=== PATIENT | female | born 1950 | race Caucasian/White ===

== ENCOUNTER 2017-09-21 14:42 | Outpatient (CLI) | payer OTHER ==
[~2017-09-21 14:42] MED LIST: APIDRA100 U/M1; CAMBIA50 MG; COZAAR25 MG PO; CYMBALTA60 MG PO; HUMULIN 70/30 PE3 ML SQ; LANTUS SOLOSTAR3 ML; PLAVIX75 MG PO; RELAGESIC TABLE1 TAB PO; SYNTHROID75 MCG PO; TRICOR145 MG PO
== END 2017-09-21 16:59 | disposition home or self-care (01) ==
LOC: SONOGRAMA 14:42
DX: S22.32XA Fracture of one rib, left side, initial encounter for closed fracture (principal)

== ENCOUNTER → 2017-09-22 10:53 | Outpatient (CLI) | payer OTHER | END | disposition home or self-care (01) | LOC: LAB 10:53 | DX: R19.7 Diarrhea, unspecified (principal) ==

== ENCOUNTER 2017-10-02 12:27 | Outpatient (CLI) | payer OTHER | END 2017-10-02 12:29 | disposition home or self-care (01) | LOC: LAB 12:27 | DX: E11.65 Type 2 diabetes mellitus with hyperglycemia (principal); I10 Essential (primary) hypertension; E66.09 Other obesity due to excess calories; E78.2 Mixed hyperlipidemia ==

== ENCOUNTER 2017-11-05 14:29 | Outpatient (CLI) | payer OTHER | END 2017-11-05 15:05 | disposition home or self-care (01) | LOC: LAB 14:29 | DX: E11.29 Type 2 diabetes mellitus with other diabetic kidney complication (principal) ==

== ENCOUNTER 2017-11-09 14:21 | Outpatient (CLI) | payer OTHER | END 2017-11-09 14:37 | disposition home or self-care (01) | LOC: MAMO-SONO 14:21 | DX: Z12.31 Encounter for screening mammogram for malignant neoplasm of breast (principal); Z87.898 Personal history of other specified conditions; N60.11 Diffuse cystic mastopathy of right breast; N60.12 Diffuse cystic mastopathy of left breast ==

== ENCOUNTER → 2017-12-07 | Emergency (ER) | payer OTHER ==
[~2017-12-07] VITALS: Ht 167.6 cm; Wt 79.8 kg
== END | disposition home or self-care (01) ==
LOC: ER 13:58 → CPU-OBS 14:00
DX: R07.89 Other chest pain (principal); G44.209 Tension-type headache, unspecified, not intractable; E11.65 Type 2 diabetes mellitus with hyperglycemia

== ENCOUNTER → 2017-12-31 | Emergency (ER) | payer OTHER ==
[~2017-12-31] VITALS: Ht 162.6 cm; Wt 80.3 kg
== END | disposition home or self-care (01) ==
LOC: ER 20:57
DX: E11.65 Type 2 diabetes mellitus with hyperglycemia (principal)

== ENCOUNTER → 2018-12-11 | Emergency (ER) | payer OTHER ==
[~2018-12-11] VITALS: Ht 165.1 cm; Wt 77.1 kg
== END | disposition left against medical advice (07) ==
LOC: ER 16:36
DX: Z53.20 Procedure and treatment not carried out because of patient's decision for unspecified reasons (principal)

== ENCOUNTER 2020-08-09 14:28 | Outpatient (CLI) | payer OTHER | END 2020-08-09 14:34 | disposition home or self-care (01) | LOC: SONOGRAMA 14:28 | PROVIDERS: ATTEND Internal Medicine | DX: R10.84 Generalized abdominal pain (principal) ==

== ENCOUNTER 2021-04-21 07:11 | Outpatient (CLI) | payer OTHER | END 2021-04-21 07:20 | disposition home or self-care (01) | LOC: SONOGRAMA 07:11 | PROVIDERS: ATTEND Internal Medicine | DX: N28.89 Other specified disorders of kidney and ureter (principal); N18.31 Chronic kidney disease, stage 3a ==

== ENCOUNTER 2022-04-20 09:43 | Outpatient (CLI) | payer OTHER | END 2022-04-20 16:00 | disposition home or self-care (01) | LOC: MAMO-SONO 09:43 | PROVIDERS: ATTEND Internal Medicine | DX: N60.11 Diffuse cystic mastopathy of right breast (principal); N60.12 Diffuse cystic mastopathy of left breast; M25.512 Pain in left shoulder; M25.522 Pain in left elbow; M25.552 Pain in left hip; M25.551 Pain in right hip; Z12.31 Encounter for screening mammogram for malignant neoplasm of breast ==

== ENCOUNTER 2023-03-17 13:27 | Emergency (ER) | payer OTHER ==
[~2023-03-17] VITALS: Ht 165.1 cm; Wt 73.9 kg
[~2023-03-17 13:27] MED LIST changes: +APIDRA SOL100 UNIT/1; +CIPRO500 MG PO; +CLONAZEPAM0.5 MG PO; +COZAAR100 MG; +CYMBALTA20 MG; +GABAPENTIN100 M2 PO; +GLIMEPIRIDE4 MG; +GLUMETZA1000 MG; +HUMALOG KW100 UNIT/1 SQ; +LANTUS SOL100 UNIT/1 SQ; +LANTUS100 U/ML; +LIPITOR40 MG; +PLAVIX75 MG; +ROSUVASTATIN CA40 MG PO; +SYNTHROID125 MCG; +SYNTHROID150 MCG PO; +TESSALON PERLE100 MG PO
== END 2023-03-18 00:22 | disposition home or self-care (01) ==
LOC: ER 13:27
DX: N39.0 Urinary tract infection, site not specified (principal); N28.9 Disorder of kidney and ureter, unspecified; K57.32 Diverticulitis of large intestine without perforation or abscess without bleeding; E11.9 Type 2 diabetes mellitus without complications; Z79.84 Long term (current) use of oral hypoglycemic drugs; I10 Essential (primary) hypertension; Z88.8 Allergy status to other drugs, medicaments and biological substances; Z91.013 Allergy to seafood
CPT/HCPCS: 36415; 74176; 93005; 96372; 99284; J1885

== ENCOUNTER 2023-03-26 08:40 | Outpatient (CLI) | payer OTHER | END 2023-03-26 13:06 | disposition home or self-care (01) | LOC: SONOGRAMA 08:40 | PROVIDERS: ATTEND Internal Medicine | DX: K76.0 Fatty (change of) liver, not elsewhere classified (principal); R10.84 Generalized abdominal pain ==

== ENCOUNTER 2023-08-03 12:17 | Emergency (ER) | payer OTHER ==
[~2023-08-03] VITALS: Ht 162.6 cm; Wt 74.8 kg
[2023-08-03 15:07] LABS: HEMATOCRIT 37.3 % (36.0-45.00); HEMOGLOBIN 12.7 g/dL (12.0-15.00); MEAN CELL VOLUME 86.9 fL (80.00-100.00); MEAN CORPUSCULAR HEMOGLOBIN 29.6 pg (27.00-32.0); MEAN CORPUSCULAR HGB CONC 34.1 g/dl (32.0-36.0); PLATELET COUNT 213 K/uL (150-450); RED BLOOD COUNT 4.29 M/uL (4.00-6.00); RED CELL DISTRIBUTION WIDTH 13.4 % (11.5-14.5)
== END 2023-08-03 21:36 | disposition home or self-care (01) ==
LOC: ER 12:17
PROVIDERS: General Practice
DX: L03.119 Cellulitis of unspecified part of limb (principal); L08.9 Local infection of the skin and subcutaneous tissue, unspecified; W54.0XXA Bitten by dog, initial encounter; I10 Essential (primary) hypertension; E11.9 Type 2 diabetes mellitus without complications; Z79.4 Long term (current) use of insulin; Z88.3 Allergy status to other anti-infective agents
CPT/HCPCS: 36415; 96365; 99282; J0456; J1885

== ENCOUNTER 2024-05-04 12:25 | Inpatient (IN) | payer OTHER ==
[~2024-05-04] VITALS: Ht 152.4 cm; Wt 71.7 kg
[2024-05-04] MEDS ORDERED: 0.9 % SODIUM CHLORIDE 1,000 ML IV STA (13:33)
[2024-05-04] MEDS ORDERED: ONDANSETRON HCL 2 MG/ML VIAL ONE ×2 (13:38→18:37)
[2024-05-04] MEDS ORDERED: ONDANSETRON HCL 2 MG/ML VIAL IV ONE (13:45)
[2024-05-04 13:55] LABS: HEMATOCRIT 37.2 % (36.0-45.00); HEMOGLOBIN 12.8 g/dL (12.0-15.00); MEAN CELL VOLUME 86.5 fL (80.00-100.00); MEAN CORPUSCULAR HEMOGLOBIN 29.6 pg (27.00-32.0); MEAN CORPUSCULAR HGB CONC 34.3 g/dl (32.0-36.0); PLATELET COUNT 202 K/uL (150-450); RED CELL DISTRIBUTION WIDTH 13.5 % (11.5-14.5)
[2024-05-04 14:25] LABS: ALKALINE PHOSPHATASE 119 U/L (50-136); ALT/SGPT 14 U/L (12-78); ANION GAP 10 (10.0-20.0); AST/SGOT 17 U/L (15-37); BILIRUBIN TOTAL 0.38 mg/dL (0.3-1.2); BILIRUBIN,CONJUGATED < 0.10 mg/dL (0.0-0.2); BILIRUBIN,UNCONJUGATED 0.28 mg/dL (0.0-0.6); BLOOD UREA NITROGEN 28 mg/dL (7-18); BUN CREA RATIO 9 (7.0-25.0); CALCIUM 9.3 mg/dL (8.5-10.1); CARBON DIOXIDE 27 mEq/L (21-32); CHLORIDE 110 mmol/L (98-107); CREATININE SERUM 3.21 mg/dL (0.55-1.02); GFR 14.23; OSMOLALITY SERUM 294 MOSM/KG (275-295); POTASSIUM 4.63 mEq/L (3.5-5.1); SODIUM 142 mmol/L (136-145); TOTAL PROTEIN 7.6 gm/dL (6.4-8.2)
[2024-05-04 14:28] LABS: GLUCOSE FASTING 201 mg/dL (65-100)
[2024-05-04 16:32] LABS: URINE APPEARANCE Turbid; URINE BILIRRUBIN Negative (NEGATIVE); URINE BLOOD Small; URINE COLOR Yellow; URINE KETONE Negative (NEGATIVE); URINE LEUKOCYTE Trace; URINE NITRATE Negative; URINE UROBILINOGEN 0.2 E.U./dl
[2024-05-04 16:35] LABS: URINE RBC 7.6 uL (0.0-20.8); URINE WBC 989.6 uL (0.0-23.2)
[2024-05-04 16:37] LABS: URINE BACTERIA > 9821.2 uL (0.0-1933); URINE CAST 0.91 uL (0.0-1.40); URINE GLUCOSE >=1000 MG/DL (NEGATIVE); URINE PROTEIN 300 (NEGATIVE)
[2024-05-04] MEDS ORDERED: CIPROFLOXACIN IN 5 % DEXTROSE 400 MG/200 ML PIGGYBAG IV ONE ×2 (17:30→17:41)
[2024-05-04] MEDS ORDERED: ACETAMINOPHEN 325 MG TABLET PO PRN (19:30)
[2024-05-04] MEDS ORDERED: FAMOTIDINE/PF 20 MG in 0.9 % SODIUM CHLORIDE 100 ML IV SCH (19:43)
[2024-05-04] MEDS ORDERED: 0.9 % SODIUM CHLORIDE 1,000 ML IV SCH (19:45)
[2024-05-04] MEDS ORDERED: INSULIN LISPRO 1,000 UNIT/10 ML UNITS SUBCUTANEO PRN (19:45)
[2024-05-04] MEDS ORDERED: DEXTROSE 50 % IN WATER 0.5 G/ML DISP.SYRIN IV PRN (19:45)
[2024-05-04 19:55] VITALS: BP 130/62
[2024-05-04] MEDS ORDERED: FAMOTIDINE/PF 20 MG/2 ML VIAL ONE (19:55)
[2024-05-04] MEDS ORDERED: AMLODIPINE BESYLATE 10 MG TABLET PO SCH (20:17)
[2024-05-04] MEDS ORDERED: hydrALAZINE HCL 20 MG VIAL IV PRN (20:30)
[2024-05-04] MEDS ORDERED: ONDANSETRON HCL 4 MG in 0.9 % SODIUM CHLORIDE 50 ML IV PRN (20:45)
[2024-05-04 20:59] LABS: INR 1.02; PARTIAL THROMBOPLASTIN TIME 22.2 SECONDS (22.0-34.0); PROTHROMBIN TIME 11.1 SECONDS (9.0-11.5)
[2024-05-04] MEDS ORDERED: CIPROFLOXACIN IN 5 % DEXTROSE 200 ML IV SCH (21:00)
[2024-05-04 21:01] LABS: ALBUMIN 2.9 gm/dL (3.4-5.0); CALCIUM 8.9 mg/dL (8.5-10.1); CREATININE SERUM 3.08 mg/dL (0.55-1.02); GFR 14.92; PHOSPHOROUS 3.6 mg/dL (2.5-4.9); POTASSIUM 4.58 mEq/L (3.5-5.1)
[2024-05-04 21:04] LABS: ALBUMIN 2.9 gm/dL (3.4-5.0)
[2024-05-04 21:30] VITALS: BP 200/86; O2SAT 97
[2024-05-05 03:44] VITALS: BP 150/66
[2024-05-05] MEDS ORDERED: LEVOTHYROXINE SODIUM 75 MCG TABLET PO SCH (06:00)
[2024-05-05] MEDS ORDERED: ACETAMINOPHEN 500 MG GEL..CAP PO PRN (07:15)
[2024-05-05 09:00] VITALS: BP 232/86
[2024-05-05] MEDS ORDERED: FAMOTIDINE/PF 20 MG in 0.9 % SODIUM CHLORIDE 100 ML IV SCH (09:00)
[2024-05-05 10:12] LABS: ALBUMIN 2.6 gm/dL (3.4-5.0); BILIRUBIN TOTAL 0.35 mg/dL (0.3-1.2); CALCIUM 8.6 mg/dL (8.5-10.1); CREATININE SERUM 3.17 mg/dL (0.55-1.02); GFR 14.43; GLOBULINA 3.5 G/DL (2.4-3.5); POTASSIUM 4.29 mEq/L (3.5-5.1); TOTAL PROTEIN 6.1 gm/dL (6.4-8.2)
[2024-05-05 21:07] VITALS: BP 150/90
[2024-05-06 02:20] VITALS: BP 176/68
[2024-05-06] MEDS ORDERED: PROMETHAZINE HCL 25 MG/ML AMPUL IM PRN (02:30)
[2024-05-06 06:59] LABS: HEMOGLOBIN 11.5 g/dL (12.0-15.00); MEAN CELL VOLUME 85.3 fL (80.00-100.00); MEAN CORPUSCULAR HEMOGLOBIN 29.7 pg (27.00-32.0); MEAN CORPUSCULAR HGB CONC 34.8 g/dl (32.0-36.0); PLATELET COUNT 226 K/uL (150-450); RED BLOOD COUNT 3.87 M/uL (4.00-6.00); RED CELL DISTRIBUTION WIDTH 13.9 % (11.5-14.5)
[2024-05-06 08:31] VITALS: BP 215/81; O2SAT 97
[2024-05-06 08:53] VITALS: BP 190/80
[2024-05-06] MEDS ORDERED: CIPROFLOXACIN IN 5 % DEXTROSE 200 ML IV SCH (09:00)
[2024-05-06 09:49] LABS: ALBUMIN 2.6 gm/dL (3.4-5.0); CALCIUM 8.7 mg/dL (8.5-10.1); CREATININE SERUM 3.28 mg/dL (0.55-1.02); GFR 13.88; PHOSPHOROUS 3.6 mg/dL (2.5-4.9); POTASSIUM 4.28 mEq/L (3.5-5.1)
[2024-05-06] MEDS ORDERED: MAGNESIUM HYDROXIDE 30 ML BLIST.PACK PO NR (14:00)
[2024-05-06] MEDS ORDERED: MINERAL OIL 30 ML BLIST.PACK PO NR (14:00)
[2024-05-06] MEDS ORDERED: LACTULOSE 20 G/30 ML BLIST.PACK PO NR (14:00)
[2024-05-06 16:36] VITALS: BP 180/90; O2SAT 100
[2024-05-07 00:50] VITALS: BP 197/86; O2SAT 96
[2024-05-07] MEDS ORDERED: ONDANSETRON HCL 2 MG/ML VIAL ONE (09:13)
[2024-05-07 09:15] VITALS: BP 143/71; O2SAT 97
[2024-05-07 14:10] LABS: URINE APPEARANCE Clear; URINE BILIRRUBIN Negative (NEGATIVE); URINE BLOOD Negative; URINE CAST 5.19 uL (0.0-1.40); URINE COLOR Yellow; URINE KETONE Trace (NEGATIVE); URINE LEUKOCYTE Small; URINE NITRATE Negative; URINE RBC 49.3 uL (0.0-20.8); URINE UROBILINOGEN 0.2 E.U./dl; URINE WBC 737.1 uL (0.0-23.2)
[2024-05-07 14:26] LABS: URINE GLUCOSE >=1000 MG/DL (NEGATIVE)
[2024-05-07 14:27] LABS: URINE PROTEIN 300 (NEGATIVE)
[2024-05-07 14:28] LABS: URINE YEAST NEGATIVE /hpf
[2024-05-07 16:00] VITALS: BP 180/60; O2SAT 98
[2024-05-08 02:00] VITALS: BP 163/78; O2SAT 97
[2024-05-08 09:26] VITALS: BP 190/88; O2SAT 97
[2024-05-08] MEDS ORDERED: IRBESARTAN 150 MG TABLET PO SCH (17:00)
[2024-05-08] MEDS ORDERED: SODIUM CHLORIDE 0.45 % 1,000 ML IV SCH (17:30)
[2024-05-08] MEDS ORDERED: LACTOBACILLUS ACIDOPHILUS 1 CAP CAP PO SCH (17:57)
[2024-05-08 19:22] VITALS: BP 180/110; O2SAT 98
[2024-05-09 02:24] VITALS: BP 143/67; O2SAT 96
[2024-05-09 06:49] LABS: HEMATOCRIT 31.9 % (36.0-45.00); HEMOGLOBIN 11.1 g/dL (12.0-15.00); MEAN CELL VOLUME 86.3 fL (80.00-100.00); MEAN CORPUSCULAR HEMOGLOBIN 29.9 pg (27.00-32.0); MEAN CORPUSCULAR HGB CONC 34.6 g/dl (32.0-36.0); PLATELET COUNT 203 K/uL (150-450); RED CELL DISTRIBUTION WIDTH 14.1 % (11.5-14.5)
[2024-05-09 07:07] LABS: ALBUMIN 2.5 gm/dL (3.4-5.0); CALCIUM 8.3 mg/dL (8.5-10.1); CREATININE SERUM 2.99 mg/dL (0.55-1.02); GFR 15.44; PHOSPHOROUS 3.2 mg/dL (2.5-4.9); POTASSIUM 4.47 mEq/L (3.5-5.1)
[2024-05-09 07:08] LABS: TSH 3.19 uIU/mL (0.358-3.74)
[2024-05-09 08:53] VITALS: BP 221/80; O2SAT 96
[2024-05-09 10:15] LABS: URINE PROT QUANT 24HR 438.2 MG/DL
[2024-05-09 10:52] LABS: URINE PROT QUANT 24 HR 3943.8 MG/24HR (42-225)
[2024-05-09 10:56] LABS: CREATININE SERUM 2.99 mg/dL (0.6-1.0)
[2024-05-09] MEDS ORDERED: IRBESARTAN 150 MG TABLET PO STA (11:21)
[2024-05-09] MEDS ORDERED: hydrALAZINE HCL 50 MG TABLET PO SCH (17:00)
[2024-05-09] MEDS ORDERED: MECLIZINE HCL 25 MG TABLET PO SCH (17:00)
[2024-05-09 17:41] VITALS: BP 200/80; O2SAT 96
[2024-05-09] MEDS ORDERED: TOBRAMYCIN/DEXAMETHASONE 20 DR/ML DROPS OP SCH (18:00)
[2024-05-10 01:52] VITALS: BP 146/94; O2SAT 97
[2024-05-10 09:29] VITALS: BP 200/90; O2SAT 97
[2024-05-10] MEDS ORDERED: NIFEDIPINE 60 MG TAB.SA.OSM PO SCH (17:00)
[2024-05-10 17:47] VITALS: BP 200/100; O2SAT 98
[2024-05-10 22:12] VITALS: BP 156/66; O2SAT 98
[2024-05-11 01:12] VITALS: BP 139/66; O2SAT 98
[2024-05-11 07:49] LABS: HEMATOCRIT 29.8 % (36.0-45.00); HEMOGLOBIN 10.4 g/dL (12.0-15.00); MEAN CELL VOLUME 86.3 fL (80.00-100.00); MEAN CORPUSCULAR HEMOGLOBIN 30.1 pg (27.00-32.0); MEAN CORPUSCULAR HGB CONC 34.9 g/dl (32.0-36.0); PLATELET COUNT 216 K/uL (150-450); RED BLOOD COUNT 3.45 M/uL (4.00-6.00); RED CELL DISTRIBUTION WIDTH 13.6 % (11.5-14.5)
[2024-05-11 08:47] LABS: ALBUMIN 2.5 gm/dL (3.4-5.0); BILIRUBIN TOTAL 0.34 mg/dL (0.3-1.2); CALCIUM 8.3 mg/dL (8.5-10.1); CREATININE SERUM 3.04 mg/dL (0.55-1.02); GFR 15.15; GLOBULINA 3.3 G/DL (2.4-3.5); MAGNESIUM 1.9 mg/dL (1.8-2.4); PHOSPHOROUS 3.7 mg/dL (2.5-4.9); POTASSIUM 4.35 mEq/L (3.5-5.1); TOTAL PROTEIN 5.8 gm/dL (6.4-8.2)
[2024-05-11 09:20] VITALS: BP 180/70; O2SAT 97
[2024-05-11 15:25] LABS: URINE APPEARANCE Clear; URINE BILIRRUBIN Negative (NEGATIVE); URINE BLOOD Negative; URINE COLOR Yellow; URINE KETONE Negative (NEGATIVE); URINE LEUKOCYTE Trace; URINE NITRATE Negative; URINE UROBILINOGEN 0.2 E.U./dl
[2024-05-11 15:31] LABS: URINE BACTERIA 8127.6 uL (0.0-1933); URINE CAST 7.93 uL (0.0-1.40); URINE WBC 199.4 uL (0.0-23.2)
[2024-05-11 15:45] LABS: URINE GLUCOSE 500 MG/DL (NEGATIVE); URINE PROTEIN 100 (NEGATIVE); URINE RBC 1.8 uL (0.0-20.8)
[2024-05-11] MEDS ORDERED: hydrALAZINE HCL 50 MG TABLET PO SCH (17:00)
[2024-05-11] MEDS ORDERED: METOPROLOL SUCCINATE 25 MG TAB.SR.24H PO SCH (17:00)
[2024-05-11] MEDS ORDERED: hydrALAZINE HCL 25 MG,hydrALAZINE HCL 50 MG PO SCH (17:00)
[2024-05-11 17:26] VITALS: BP 199/70; O2SAT 96
[2024-05-11] MEDS ORDERED: NITROGLYCERIN IN 5 % DEXTROSE 250 ML IV SCH (19:15)
[2024-05-11] MEDS ORDERED: ATORVASTATIN CALCIUM 40 MG TABLET PO SCH (20:46)
[2024-05-11] MEDS ORDERED: ASPIRIN 325 MG TABLET.EC PO STA (20:46)
[2024-05-11 21:48] VITALS: BP 106/66; O2SAT 100
[2024-05-12] MEDS ORDERED: hydrALAZINE HCL 25 MG TABLET PO SCH (01:00)
[2024-05-12 01:22] VITALS: BP 130/60; O2SAT 99
[2024-05-12 06:51] LABS: CHOL HDL RATIO 3.9 (0-5.0)
[2024-05-12 06:56] LABS: CKMB 3.9 NG/ML (0.5-3.6)
[2024-05-12] MEDS ORDERED: NITROGLYCERIN IN 5 % DEXTROSE 250 ML IV SCH (07:30)
[2024-05-12 09:08] VITALS: BP 167/57; O2SAT 98
[2024-05-12] MEDS ORDERED: CLOPIDOGREL BISULFATE 75 MG TABLET PO SCH (09:17)
[2024-05-12] MEDS ORDERED: ASPIRIN 325 MG TABLET.EC PO SCH (09:17)
[2024-05-12] MEDS ORDERED: AMLODIPINE BESYLATE 5 MG TABLET PO SCH (09:36)
[2024-05-12] MEDS ORDERED: DOXAZOSIN MESYLATE 4 MG TABLET PO SCH (09:37)
[2024-05-12] MEDS ORDERED: ENOXAPARIN SODIUM 40 MG/0.4 ML SYRINGE SUBCUTANEO SCH (09:38)
[2024-05-12] MEDS ORDERED: hydrALAZINE HCL 50 MG TABLET PO SCH (13:00)
[2024-05-12] MEDS ORDERED: METOPROLOL SUCCINATE 50 MG TAB.SR.24H PO SCH (17:00)
[2024-05-12 18:00] VITALS: BP 196/79
[2024-05-13 01:59] VITALS: BP 183/80; O2SAT 100
[2024-05-13 02:11] LABS: CKMB 4.2 NG/ML (0.5-3.6)
[2024-05-13 05:08] VITALS: BP 148/79
[2024-05-13 08:00] VITALS: BP 187/82; O2SAT 94
[2024-05-13] MEDS ORDERED: ISOSORBIDE MONONITRATE 30 MG TABLET PO SCH (09:00)
[2024-05-13] MEDS ORDERED: DOXAZOSIN MESYLATE 4 MG TABLET PO SCH (09:00)
[2024-05-13] MEDS ORDERED: NIFEDIPINE 90 MG TAB.SA.OSM PO SCH (09:00)
[2024-05-13] MEDS ORDERED: METOPROLOL SUCCINATE 100 MG TAB.SR.24H PO SCH (17:00)
[2024-05-13 17:19] VITALS: BP 132/63
[2024-05-13 17:39] VITALS: BP 137/56
[2024-05-13] MEDS ORDERED: LEVALBUTEROL HCL 0.63 MG/3 ML SOLUTION IH SCH (20:20)
[2024-05-13] MEDS ORDERED: IPRATROPIUM BROMIDE 0.5 MG/2.5 ML AMPUL.NEB IH SCH (20:20)
[2024-05-14 02:26] VITALS: BP 120/55
[2024-05-14 08:26] VITALS: BP 114/55; O2SAT 98
[2024-05-14] MEDS ORDERED: CEFTRIAXONE SODIUM 1,000 MG VIAL IV SCH (09:00)
[2024-05-14] MEDS ORDERED: BUMETANIDE 0.5 MG TABLET PO SCH (10:34)
[2024-05-14 12:09] LABS: BB 0 % (0); MM 86 % (97-100); c mb 0 % (0-3); macro t 14 % (Not Observed); macro tyoe 2 0 % (Not Observed); total ck 229 U/L (32-182)
[2024-05-14 14:49] VITALS: BP 126/58; O2SAT 100
[2024-05-14 18:12] VITALS: BP 107/53
[2024-05-14] MEDS ORDERED: NITROGLYCERIN 0.4 MG TAB.SUBL SL ONE (18:15)
[2024-05-14] MEDS ORDERED: AZTREONAM 1,000 MG VIAL IV SCH (21:00)
[2024-05-14] MEDS ORDERED: ALPRAzolam 1 MG TABLET PO SCH (21:00)
[2024-05-15 01:41] VITALS: BP 118/69; O2SAT 99
[2024-05-15 08:18] LABS: URINE BILIRRUBIN Negative (NEGATIVE); URINE BLOOD Negative; URINE COLOR Yellow; URINE KETONE Trace (NEGATIVE); URINE LEUKOCYTE Moderate; URINE NITRATE Negative; URINE UROBILINOGEN 0.2 E.U./dl
[2024-05-15 08:20] LABS: URINE BACTERIA 723.2 uL (0.0-1933); URINE CAST 15.57 uL (0.0-1.40); URINE RBC 198.4 uL (0.0-20.8); URINE WBC 409.2 uL (0.0-23.2)
[2024-05-15] MEDS ORDERED: MORPHINE SULFATE 2 MG/ML CARTRIDGE IV PRN (08:45)
[2024-05-15] MEDS ORDERED: ALPRAzolam 1 MG TABLET PO SCH (09:00)
[2024-05-15 09:04] LABS: URINE GLUCOSE 100 MG/DL (NEGATIVE); URINE PROTEIN 300 (NEGATIVE)
[2024-05-15 09:05] LABS: URINE APPEARANCE CLEAR
[2024-05-15 09:06] LABS: URINE CRYSTALS FEW /HPF
[2024-05-15 09:23] VITALS: BP 146/54; O2SAT 98
[2024-05-15 11:15] LABS: HEMATOCRIT 23.2 % (36.0-45.00); MEAN CELL VOLUME 87.5 fL (80.00-100.00); MEAN CORPUSCULAR HEMOGLOBIN 30.1 pg (27.00-32.0); MEAN CORPUSCULAR HGB CONC 34.7 g/dl (32.0-36.0); PLATELET COUNT 159 K/uL (150-450); RED BLOOD COUNT 2.65 M/uL (4.00-6.00); RED CELL DISTRIBUTION WIDTH 14.1 % (11.5-14.5)
[2024-05-15 12:31] LABS: ALBUMIN 2.4 gm/dL (3.4-5.0); BILIRUBIN TOTAL 0.16 mg/dL (0.3-1.2); GFR 10.32; GLOBULINA 3.2 G/DL (2.4-3.5); MAGNESIUM 2.1 mg/dL (1.8-2.4); POTASSIUM 4.9 mEq/L (3.5-5.1); TOTAL PROTEIN 5.6 gm/dL (6.4-8.2)
[2024-05-15 13:01] LABS: CREATININE SERUM 4.24 mg/dL (0.55-1.02)
[2024-05-15 13:46] VITALS: BP 133/57
[2024-05-15 16:41] VITALS: BP 115/47
[2024-05-15] MEDS ORDERED: ZOLPIDEM TARTRATE 10 MG TABLET PO SCH (21:00)
[2024-05-16] VITALS (9 sets, daily range): BP systolic 70–123; BP diastolic 42–66; O2SAT 96–100
[2024-05-16] MEDS ORDERED: EPOETIN ALFA-EPBX 10,000 UNIT/ML VIAL (Retacrit) SUBCUTANEO SCH (09:00)
[2024-05-16] MEDS ORDERED: PANTOPRAZOLE SODIUM 80 MG in 0.9 % SODIUM CHLORIDE 100 ML IV SCH (13:00)
[2024-05-16] MEDS ORDERED: FUROsemide 40 MG/4 ML VIAL IV SCH (13:00)
[2024-05-16 15:17] LABS: MEAN CELL VOLUME 87.8 fL (80.00-100.00); MEAN CORPUSCULAR HGB CONC 33.6 g/dl (32.0-36.0); PLATELET COUNT 135 K/uL (150-450); RED BLOOD COUNT 2.57 M/uL (4.00-6.00); RED CELL DISTRIBUTION WIDTH 14.4 % (11.5-14.5)
[2024-05-16 15:18] LABS: HEMATOCRIT 22.6 % (36.0-45.00); MEAN CORPUSCULAR HEMOGLOBIN 29.5 pg (27.00-32.0)
[2024-05-16 15:20] LABS: HEMOGLOBIN 7.6 g/dL (12.0-15.00)
[2024-05-16] MEDS ORDERED: NOREPINEPHRINE BITARTRATE 8 MG in DEXTROSE 5 % IN WATER 250 ML IV SCH (15:45)
[2024-05-16] MEDS ORDERED: 0.9 % SODIUM CHLORIDE 500 ML IV ONE (15:45)
[2024-05-16] MEDS ORDERED: MEROPENEM 500 MG/VIAL VIAL IV SCH (17:00)
[2024-05-16] MEDS ORDERED: FLUCONAZOLE IN NACL,ISO-OSM 100 MG/50 ML PIGGYBAG IV SCH (17:00)
[2024-05-16] MEDS ORDERED: FF) Daptomycin 500 MG/VIAL IV SCH (17:00)
[2024-05-16 22:47] LABS: URINE APPEARANCE Turbid; URINE BILIRRUBIN Negative (NEGATIVE); URINE BLOOD Large; URINE COLOR Yellow; URINE GLUCOSE Negative (NEGATIVE); URINE KETONE Trace (NEGATIVE); URINE LEUKOCYTE Moderate; URINE NITRATE Negative; URINE UROBILINOGEN 0.2 E.U./dl
[2024-05-16 22:50] LABS: URINE BACTERIA 662.7 uL (0.0-1933); URINE CAST 5.64 uL (0.0-1.40); URINE EPITHELIAL CELLS 54.5 uL (0.0-38.8); URINE RBC 3087.4 uL (0.0-20.8); URINE WBC 184.6 uL (0.0-23.2)
[2024-05-16 23:00] LABS: URINE PROTEIN 300 (NEGATIVE)
[2024-05-17] VITALS (22 sets, daily range): BP systolic 92–162; BP diastolic 37–90; O2SAT 97–100
[2024-05-17 07:35] LABS: MEAN CELL VOLUME 87.4 fL (80.00-100.00); MEAN CORPUSCULAR HGB CONC 34.2 g/dl (32.0-36.0); PLATELET COUNT 164 K/uL (150-450); RED BLOOD COUNT 2.63 M/uL (4.00-6.00); RED CELL DISTRIBUTION WIDTH 14.3 % (11.5-14.5)
[2024-05-17 07:53] LABS: ALBUMIN 2.1 gm/dL (3.4-5.0); BILIRUBIN TOTAL 0.27 mg/dL (0.3-1.2); CALCIUM 7.9 mg/dL (8.5-10.1); GFR 9.1; GLOBULINA 3.1 G/DL (2.4-3.5); POTASSIUM 5.77 mEq/L (3.5-5.1); TOTAL PROTEIN 5.2 gm/dL (6.4-8.2)
[2024-05-17 08:54] LABS: CREATININE SERUM 4.73 mg/dL (0.55-1.02)
[2024-05-17] MEDS ORDERED: AZTREONAM 1,000 MG VIAL IV SCH (09:00)
[2024-05-17 10:28] LABS: HEMOGLOBIN 7.9 g/dL (12.0-15.00)
[2024-05-17] MEDS ORDERED: ALBUMIN HUMAN-25 0.25GM/ML (50ML) VIAL IV ONE (10:45)
[2024-05-17] MEDS ORDERED: SODIUM POLYSTYRENE SULFONATE 30G/8 TSP PO SCH (12:00)
[2024-05-17] MEDS ORDERED: SODIUM BICARBONATE 50MEQ/50ML VIAL IV NR (15:30)
[2024-05-17] MEDS ORDERED: RINGERS SOLUTION,LACTATED 1,000 ML IV SCH (15:30)
[2024-05-17] MEDS ORDERED: MORPHINE SULFATE 2 MG/ML CARTRIDGE IV PRN (16:15)
[2024-05-17] MEDS ORDERED: FLUCONAZOLE IN NACL,ISO-OSM 2 MG/ML ML IV SCH (17:00)
[2024-05-17 17:32] LABS: INR 1.03; PARTIAL THROMBOPLASTIN TIME 35.4 SECONDS (22.0-34.0); PROTHROMBIN TIME 11.2 SECONDS (9.0-11.5)
[2024-05-18] VITALS (19 sets, daily range): BP systolic 79–151; BP diastolic 39–89; O2SAT 98–100
[2024-05-18 20:13] LABS: HEMATOCRIT 25.6 % (36.0-45.00); HEMOGLOBIN 8.8 g/dL (12.0-15.00); MEAN CORPUSCULAR HEMOGLOBIN 29.6 pg (27.00-32.0); MEAN CORPUSCULAR HGB CONC 34.3 g/dl (32.0-36.0); RED BLOOD COUNT 2.97 M/uL (4.00-6.00)
[2024-05-18 20:14] LABS: PLATELET COUNT 126 K/uL (150-450)
[2024-05-19] VITALS (7 sets, daily range): BP systolic 124–147; BP diastolic 54–81; O2SAT 96–100
[2024-05-19 08:12] LABS: HEMATOCRIT 24.8 % (36.0-45.00); MEAN CELL VOLUME 85.6 fL (80.00-100.00); MEAN CORPUSCULAR HGB CONC 34.4 g/dl (32.0-36.0); RED CELL DISTRIBUTION WIDTH 14.5 % (11.5-14.5)
[2024-05-19 08:18] LABS: MEAN CORPUSCULAR HEMOGLOBIN 29.3 pg (27.00-32.0)
[2024-05-19 08:19] LABS: HEMOGLOBIN 8.5 g/dL (12.0-15.00); PLATELET COUNT 111 K/uL (150-450)
[2024-05-19 08:28] LABS: ALBUMIN 2.1 gm/dL (3.4-5.0); BILIRUBIN TOTAL 0.33 mg/dL (0.3-1.2); CREATININE SERUM 3.21 mg/dL (0.55-1.02); GFR 14.23; GLOBULINA 2.7 G/DL (2.4-3.5); POTASSIUM 3.67 mEq/L (3.5-5.1); TOTAL PROTEIN 4.8 gm/dL (6.4-8.2)
[2024-05-19 11:23] LABS: PLATELET COUNT 117 K/uL (150-450)
[2024-05-19 11:25] LABS: PLT IN CITRATE 107 K/uL (150-450)
[2024-05-19 13:02] LABS: ABG PH 7.413 (7.35-7.45); ABG PO2 104.9 mmHg (80-100); ABG pCO2 34.4 mmHg (35-45); BASE EXCESS -2.3 mmol/l; BICARBONATE 21.5 mmol/l (23-25); Tco2 22.5 mmol/l
[2024-05-19 15:53] LABS: allen test SATISFACTORY; o2 32 %; puncture site RADIAL RIGHT
[2024-05-20 01:27] LABS: HEMATOCRIT 33.5 % (36.0-45.00); HEMOGLOBIN 11.3 g/dL (12.0-15.00); MEAN CELL VOLUME 87.2 fL (80.00-100.00); MEAN CORPUSCULAR HEMOGLOBIN 29.5 pg (27.00-32.0); MEAN CORPUSCULAR HGB CONC 33.8 g/dl (32.0-36.0); RED BLOOD COUNT 3.85 M/uL (4.00-6.00); RED CELL DISTRIBUTION WIDTH 14.5 % (11.5-14.5)
[2024-05-20 01:28] LABS: PLATELET COUNT 128 K/uL (150-450)
[2024-05-20 04:00] VITALS: BP 156/62; O2SAT 98
[2024-05-20 07:25] VITALS: BP 166/88; O2SAT 98
[2024-05-20 12:00] VITALS: BP 162/60; O2SAT 98
[2024-05-20 15:15] VITALS: BP 142/57; O2SAT 97
[2024-05-20] MEDS ORDERED: ENOXAPARIN SODIUM 30 MG/0.3 ML SYRINGE SUBCUTANEO SCH (17:00)
[2024-05-20 20:00] VITALS: BP 150/62; O2SAT 100
[2024-05-21] VITALS: BP 126/61; O2SAT 100
[2024-05-21 04:00] VITALS: BP 148/58; O2SAT 99
[2024-05-21 07:01] LABS: HEMATOCRIT 30.5 % (36.0-45.00); HEMOGLOBIN 10.6 g/dL (12.0-15.00); MEAN CELL VOLUME 87.2 fL (80.00-100.00); MEAN CORPUSCULAR HEMOGLOBIN 30.3 pg (27.00-32.0); MEAN CORPUSCULAR HGB CONC 34.8 g/dl (32.0-36.0); PLATELET COUNT 151 K/uL (150-450); RED CELL DISTRIBUTION WIDTH 14.7 % (11.5-14.5)
[2024-05-21 07:13] LABS: ALBUMIN 1.9 gm/dL (3.4-5.0); BILIRUBIN TOTAL 0.56 mg/dL (0.3-1.2); CREATININE SERUM 2.3 mg/dL (0.55-1.02); GFR 20.9; GLOBULINA 2.8 G/DL (2.4-3.5); MAGNESIUM 1.8 mg/dL (1.8-2.4); TOTAL PROTEIN 4.7 gm/dL (6.4-8.2)
[2024-05-21 07:28] VITALS: BP 124/64; O2SAT 98
[2024-05-21 07:32] LABS: POTASSIUM 2.74 mEq/L (3.5-5.1)
[2024-05-21] MEDS ORDERED: DEXTROSE 5%-LACTATED RINGERS 1,000 ML IV SCH (08:00)
[2024-05-21] MEDS ORDERED: POTASSIUM CHLORIDE IN WATER 40 MEQ/100 ML PIGGYBAG IV SCH (09:00)
[2024-05-21] MEDS ORDERED: POLYETHYLENE GLYCOL 3350 17 GM BLIST.PACK PO SCH (09:00)
[2024-05-21 14:36] VITALS: BP 126/53; O2SAT 100
[2024-05-21 15:28] VITALS: BP 138/59; O2SAT 100
[2024-05-21 21:00] VITALS: BP 107/48; O2SAT 100
[2024-05-22] VITALS (13 sets, daily range): BP systolic 75–177; BP diastolic 48–79; O2SAT 98–100
[2024-05-22 07:00] LABS: HEMATOCRIT 29.5 % (36.0-45.00); HEMOGLOBIN 10.3 g/dL (12.0-15.00); MEAN CELL VOLUME 87.6 fL (80.00-100.00); MEAN CORPUSCULAR HEMOGLOBIN 30.6 pg (27.00-32.0); MEAN CORPUSCULAR HGB CONC 34.9 g/dl (32.0-36.0); PLATELET COUNT 156 K/uL (150-450); RED BLOOD COUNT 3.37 M/uL (4.00-6.00); RED CELL DISTRIBUTION WIDTH 14.6 % (11.5-14.5)
[2024-05-22 07:05] LABS: ALBUMIN 1.8 gm/dL (3.4-5.0); BILIRUBIN TOTAL 0.53 mg/dL (0.3-1.2); CALCIUM 7.8 mg/dL (8.5-10.1); CREATININE SERUM 1.69 mg/dL (0.55-1.02); GFR 29.83; GLOBULINA 2.9 G/DL (2.4-3.5); TOTAL PROTEIN 4.7 gm/dL (6.4-8.2)
[2024-05-22 07:36] LABS: POTASSIUM 2.9 mEq/L (3.5-5.1)
[2024-05-22] MEDS ORDERED: POTASSIUM CHLORIDE IN WATER 100 ML IV ONE (08:45)
[2024-05-22] MEDS ORDERED: POTASSIUM CHLORIDE/D5-0.9%NACL 1,000 ML IV ONE (08:45)
[2024-05-22] MEDS ORDERED: PANTOPRAZOLE SODIUM 40 MG TABLET.DR PO SCH (09:00)
[2024-05-22] MEDS ORDERED: POTASSIUM CHLORIDE IN WATER 100 ML IV SCH ×2 (09:00→09:48)
[2024-05-22] MEDS ORDERED: ALBUMIN HUMAN-25 0.25GM/ML (50ML) VIAL IV SCH (13:00)
[2024-05-22] MEDS ORDERED: FUROsemide 20 MG/2 ML VIAL IV SCH (13:00)
[2024-05-22 17:06] LABS: Glycopro Negative (Negative); HL Negative (Negative); la Negative (Negative); lb Negative (Negative); llb Negative (Negative)
[2024-05-22 23:47] LABS: ob POSITIVE (NEGATIVE)
[2024-05-23 04:00] VITALS: BP 161/73; O2SAT 99
[2024-05-23 06:21] LABS: HEMATOCRIT 29.7 % (36.0-45.00); HEMOGLOBIN 10.4 g/dL (12.0-15.00); MEAN CELL VOLUME 85.9 fL (80.00-100.00); MEAN CORPUSCULAR HGB CONC 34.9 g/dl (32.0-36.0); PLATELET COUNT 170 K/uL (150-450); RED BLOOD COUNT 3.46 M/uL (4.00-6.00); RED CELL DISTRIBUTION WIDTH 14.9 % (11.5-14.5)
[2024-05-23 07:00] LABS: ALBUMIN 2.3 gm/dL (3.4-5.0); BILIRUBIN TOTAL 0.86 mg/dL (0.3-1.2); CALCIUM 8.4 mg/dL (8.5-10.1); CREATININE SERUM 1.99 mg/dL (0.55-1.02); GFR 24.7; GLOBULINA 2.8 G/DL (2.4-3.5); MAGNESIUM 1.8 mg/dL (1.8-2.4); POTASSIUM 3.36 mEq/L (3.5-5.1); TOTAL PROTEIN 5.1 gm/dL (6.4-8.2)
[2024-05-23] MEDS ORDERED: POTASSIUM CHLORIDE IN WATER 100 ML IV NR (09:00)
[2024-05-23 10:09] VITALS: BP 167/71; O2SAT 98
[2024-05-23 12:00] VITALS: BP 174/89; O2SAT 100
[2024-05-23] MEDS ORDERED: ALBUMIN HUMAN-25 0.25GM/ML (50ML) VIAL IV SCH (13:00)
[2024-05-23] MEDS ORDERED: FUROsemide 20 MG/2 ML VIAL IV SCH (13:00)
[2024-05-23] MEDS ORDERED: MORPHINE SULFATE 2 MG/ML CARTRIDGE IV NR (16:30)
[2024-05-23 16:38] VITALS: BP 206/64; O2SAT 97
[2024-05-23 17:58] VITALS: O2SAT 96
[2024-05-23 21:50] VITALS: BP 134/57; O2SAT 98
[2024-05-24] VITALS (9 sets, daily range): BP systolic 115–147; BP diastolic 58–82; O2SAT 95–98
[2024-05-24] MEDS ORDERED: ALBUMIN HUMAN 100 ML VIAL IV SCH (07:15)
[2024-05-24] MEDS ORDERED: POTASSIUM BICARBONATE/CIT AC 25 MEQ TABLET.EFF PO SCH (09:00)
[2024-05-24] MEDS ORDERED: SPIRONOLACTONE 25 MG TABLET PO SCH (09:00)
[2024-05-24] MEDS ORDERED: hydrALAZINE HCL 50 MG TABLET PO SCH (13:00)
[2024-05-24] MEDS ORDERED: HEPARIN SODIUM,PORCINE 5,000 UNITS/ML VIAL IV STA (14:11)
[2024-05-24] MEDS ORDERED: MORPHINE SULFATE 2 MG/ML CARTRIDGE IV ONE (20:30)
[2024-05-24] MEDS ORDERED: DOXAZOSIN MESYLATE 2 MG TABLET PO SCH (21:00)
[2024-05-25] VITALS (9 sets, daily range): BP systolic 146–153; BP diastolic 63–70; O2SAT 97–100
[2024-05-25 08:44] LABS: ALBUMIN 2.1 gm/dL (3.4-5.0); BILIRUBIN TOTAL 0.83 mg/dL (0.3-1.2); CALCIUM 7.9 mg/dL (8.5-10.1); CREATININE SERUM 2.47 mg/dL (0.55-1.02); GFR 19.25; GLOBULINA 2.9 G/DL (2.4-3.5); MAGNESIUM 1.5 mg/dL (1.8-2.4); POTASSIUM 4.22 mEq/L (3.5-5.1)
[2024-05-25] MEDS ORDERED: GABAPENTIN 300 MG CAPSULE PO SCH (09:00)
[2024-05-25 14:02] LABS: HEMATOCRIT 28.4 % (36.0-45.00); HEMOGLOBIN 9.6 g/dL (12.0-15.00); MEAN CELL VOLUME 87.7 fL (80.00-100.00); MEAN CORPUSCULAR HEMOGLOBIN 29.8 pg (27.00-32.0); MEAN CORPUSCULAR HGB CONC 33.9 g/dl (32.0-36.0); RED BLOOD COUNT 3.23 M/uL (4.00-6.00); RED CELL DISTRIBUTION WIDTH 15.7 % (11.5-14.5)
[2024-05-25 14:19] LABS: PLATELET COUNT 119 K/uL (150-450)
[2024-05-25] MEDS ORDERED: MAGNESIUM SULFATE 2,000 MG in 0.9 % SODIUM CHLORIDE 100 ML IV ONE (20:45)
[2024-05-26] VITALS (8 sets, daily range): BP systolic 124–170; BP diastolic 54–72; O2SAT 94–99
[2024-05-26 06:44] LABS: HEMATOCRIT 28.3 % (36.0-45.00); HEMOGLOBIN 9.7 g/dL (12.0-15.00); MEAN CELL VOLUME 89.5 fL (80.00-100.00); MEAN CORPUSCULAR HEMOGLOBIN 30.8 pg (27.00-32.0); MEAN CORPUSCULAR HGB CONC 34.4 g/dl (32.0-36.0); PLATELET COUNT 135 K/uL (150-450); RED BLOOD COUNT 3.16 M/uL (4.00-6.00); RED CELL DISTRIBUTION WIDTH 15.3 % (11.5-14.5)
[2024-05-26 07:20] LABS: ALBUMIN 2.1 gm/dL (3.4-5.0); CALCIUM 8.3 mg/dL (8.5-10.1); CREATININE SERUM 2.94 mg/dL (0.55-1.02); GFR 15.75; MAGNESIUM 2.2 mg/dL (1.8-2.4); PHOSPHOROUS 4.3 mg/dL (2.5-4.9); POTASSIUM 4.56 mEq/L (3.5-5.1)
[2024-05-26] MEDS ORDERED: HEPARIN SODIUM,PORCINE 5,000 UNITS/ML VIAL IV STA (16:31)
[2024-05-27] VITALS (9 sets, daily range): BP systolic 142–166; BP diastolic 60–70; O2SAT 97–99
[2024-05-27] MEDS ORDERED: ALBUMIN HUMAN 100 ML VIAL IV SCH ×2 (10:30)
[2024-05-27] MEDS ORDERED: AMINO ACIDS/PROTEIN HYDROLYS 30 ML BLIST.PACK PO SCH (17:00)
[2024-05-27] MEDS ORDERED: HEPARIN SODIUM,PORCINE 5,000 UNITS/ML VIAL IV NR (19:15)
[2024-05-27] MEDS ORDERED: GABAPENTIN 300 MG CAPSULE PO SCH (21:00)
[2024-05-28] VITALS (10 sets, daily range): BP systolic 156–161; BP diastolic 60–71; O2SAT 94–98
[2024-05-28] MEDS ORDERED: INSULIN LISPRO 1,000 UNIT/10 ML UNITS SUBCUTANEO PRN (09:15)
[2024-05-28] MEDS ORDERED: ALBUMIN HUMAN 100 ML VIAL IV SCH (12:00)
[2024-05-28] MEDS ORDERED: IPRATROPIUM BROMIDE 0.5 MG/2.5 ML AMPUL.NEB IH SCH (13:00)
[2024-05-28 13:33] LABS: T4 FREE 0.92 NG/ML (0.76-1.46); TSH 0.718 uIU/mL (0.358-3.74)
[2024-05-28] MEDS ORDERED: LEVALBUTEROL HCL 0.63 MG/3 ML SOLUTION IH SCH (17:00)
[2024-05-29] VITALS (9 sets, daily range): BP systolic 122–131; BP diastolic 58–67; O2SAT 92–99
[2024-05-29 06:32] LABS: ALBUMIN 2.5 gm/dL (3.4-5.0); CALCIUM 8.2 mg/dL (8.5-10.1); CREATININE SERUM 3.66 mg/dL (0.55-1.02); GFR 12.23; PHOSPHOROUS 3.7 mg/dL (2.5-4.9); POTASSIUM 4.77 mEq/L (3.5-5.1)
[2024-05-29 06:45] LABS: INR 1.14; PROTHROMBIN TIME 12.3 SECONDS (9.0-11.5)
[2024-05-29 06:47] LABS: MEAN CELL VOLUME 89.2 fL (80.00-100.00); PLATELET COUNT 138 K/uL (150-450); RED BLOOD COUNT 2.62 M/uL (4.00-6.00); RED CELL DISTRIBUTION WIDTH 15.4 % (11.5-14.5)
[2024-05-29 06:57] LABS: PARTIAL THROMBOPLASTIN TIME 41.3 SECONDS (22.0-34.0)
[2024-05-29 07:00] LABS: HEMATOCRIT 23.4 % (36.0-45.00); MEAN CORPUSCULAR HEMOGLOBIN 30.5 pg (27.00-32.0)
[2024-05-29 15:10] LABS: ob POSITIVE (NEGATIVE)
[2024-05-30] VITALS (7 sets, daily range): BP systolic 164–188; BP diastolic 64–65; O2SAT 95–100
[2024-05-30 05:39] LABS: HEMATOCRIT 29.9 % (36.0-45.00); MEAN CORPUSCULAR HGB CONC 34.2 g/dl (32.0-36.0); RED CELL DISTRIBUTION WIDTH 15.6 % (11.5-14.5)
[2024-05-30 05:41] LABS: PLATELET COUNT 122 K/uL (150-450)
[2024-05-30 05:42] LABS: HEMOGLOBIN 10.2 g/dL (12.0-15.00)
[2024-05-30] MEDS ORDERED: AMLODIPINE BESYLATE 10 MG TABLET PO STA (11:07)
[2024-05-30] MEDS ORDERED: MIDAZOLAM HCL 2 MG/2 ML VIAL IV STA (11:52)
[2024-05-30] MEDS ORDERED: hydrALAZINE HCL 50 MG TABLET PO SCH (21:00)
[2024-05-30] MEDS ORDERED: HEPARIN SODIUM,PORCINE 5,000 UNITS/ML VIAL SUBCUTANEO SCH (21:00)
[2024-05-30] MEDS ORDERED: DOXAZOSIN MESYLATE 2 MG TABLET PO SCH (21:00)
[2024-05-31] VITALS (7 sets, daily range): BP systolic 128–142; BP diastolic 48–78; O2SAT 96–98
[2024-05-31 07:42] LABS: HEMATOCRIT 29.5 % (36.0-45.00); MEAN CELL VOLUME 88.9 fL (80.00-100.00); MEAN CORPUSCULAR HEMOGLOBIN 30.1 pg (27.00-32.0); MEAN CORPUSCULAR HGB CONC 33.9 g/dl (32.0-36.0); PLATELET COUNT 162 K/uL (150-450); RED BLOOD COUNT 3.32 M/uL (4.00-6.00); RED CELL DISTRIBUTION WIDTH 15.9 % (11.5-14.5)
[2024-05-31 07:46] LABS: ALBUMIN 2.5 gm/dL (3.4-5.0); BILIRUBIN TOTAL 0.86 mg/dL (0.3-1.2); CALCIUM 8.2 mg/dL (8.5-10.1); CREATININE SERUM 3.83 mg/dL (0.55-1.02); GFR 11.6; GLOBULINA 3.4 G/DL (2.4-3.5); MAGNESIUM 1.8 mg/dL (1.8-2.4); PHOSPHOROUS 3.7 mg/dL (2.5-4.9); POTASSIUM 4.86 mEq/L (3.5-5.1); TOTAL PROTEIN 5.9 gm/dL (6.4-8.2)
[2024-05-31] MEDS ORDERED: AMLODIPINE BESYLATE 10 MG TABLET PO SCH (09:00)
[2024-05-31] MEDS ORDERED: HEPARIN SODIUM,PORCINE 5,000 UNITS/ML VIAL IV ONE (18:15)
[2024-05-31] MEDS ORDERED: DOXAZOSIN MESYLATE 4 MG TABLET PO SCH (21:00)
[2024-06-01] VITALS (9 sets, daily range): BP systolic 125–138; BP diastolic 56–61; O2SAT 90–99
[2024-06-01 07:44] LABS: HEMATOCRIT 31.3 % (36.0-45.00); HEMOGLOBIN 10.4 g/dL (12.0-15.00); MEAN CELL VOLUME 89.5 fL (80.00-100.00); MEAN CORPUSCULAR HEMOGLOBIN 29.6 pg (27.00-32.0); MEAN CORPUSCULAR HGB CONC 33.1 g/dl (32.0-36.0); PLATELET COUNT 162 K/uL (150-450); RED CELL DISTRIBUTION WIDTH 15.7 % (11.5-14.5)
[2024-06-01 08:27] LABS: ALBUMIN 2.3 gm/dL (3.4-5.0); BILIRUBIN TOTAL 0.87 mg/dL (0.3-1.2); BILIRUBIN,CONJUGATED 0.24 mg/dL (0.0-0.2); BILIRUBIN,UNCONJUGATED 0.63 mg/dL (0.0-0.6); CALCIUM 8.5 mg/dL (8.5-10.1); CREATININE SERUM 3.19 mg/dL (0.55-1.02); GFR 14.33; PHOSPHOROUS 4.3 mg/dL (2.5-4.9); POTASSIUM 4.36 mEq/L (3.5-5.1); TOTAL PROTEIN 5.6 gm/dL (6.4-8.2)
[2024-06-01] MEDS ORDERED: IRON FUM,PS/FOLIC/BCOMP,C NO.9 1 CAP CAPSULE PO SCH (09:00)
[2024-06-01] MEDS ORDERED: PEG3350/SOD SULF,BICARB,CL/KCL 4,000 ML GALLON PO NR (13:00)
[2024-06-01] MEDS ORDERED: AZTREONAM 2,000 MG VIAL IV SCH (16:15)
[2024-06-01] MEDS ORDERED: ORPHENADRINE CITRATE 30 MG/ML AMPUL IV ONE (18:00)
[2024-06-01] MEDS ORDERED: MORPHINE SULFATE 2 MG/ML CARTRIDGE IV ONE (18:00)
[2024-06-02] VITALS (9 sets, daily range): BP systolic 127–139; BP diastolic 58–62; O2SAT 90–99
[2024-06-02] MEDS ORDERED: HEPARIN SODIUM,PORCINE 5,000 UNITS/ML VIAL IV NR (16:45)
[2024-06-02] MEDS ORDERED: DIPHENHYDRAMINE HCL 50 MG/ML VIAL 1ML IV ONE (19:15)
[2024-06-02] MEDS ORDERED: METHYLPREDNISOLONE SOD SUCC 40 MG VIAL IV ONE (19:15)
[2024-06-03] VITALS (8 sets, daily range): BP systolic 106–139; BP diastolic 64–71; O2SAT 97–99
[2024-06-03 06:14] LABS: HEMATOCRIT 33.4 % (36.0-45.00); HEMOGLOBIN 11.2 g/dL (12.0-15.00); MEAN CELL VOLUME 89.2 fL (80.00-100.00); MEAN CORPUSCULAR HEMOGLOBIN 29.8 pg (27.00-32.0); MEAN CORPUSCULAR HGB CONC 33.4 g/dl (32.0-36.0); PLATELET COUNT 136 K/uL (150-450); RED BLOOD COUNT 3.74 M/uL (4.00-6.00); RED CELL DISTRIBUTION WIDTH 15.5 % (11.5-14.5)
[2024-06-03 06:56] LABS: ALBUMIN 2.3 gm/dL (3.4-5.0); BILIRUBIN TOTAL 0.55 mg/dL (0.3-1.2); CALCIUM 8.4 mg/dL (8.5-10.1); GFR 15.38; GLOBULINA 3.9 G/DL (2.4-3.5); PHOSPHOROUS 4.6 mg/dL (2.5-4.9); POTASSIUM 5.51 mEq/L (3.5-5.1); TOTAL PROTEIN 6.2 gm/dL (6.4-8.2)
[2024-06-03] MEDS ORDERED: MIDAZOLAM HCL 2 MG/2 ML VIAL IV ONE (13:45)
[2024-06-03] MEDS ORDERED: fentaNYL CITRATE 50 MCG/ML AMPUL IV ONE (13:45)
[2024-06-04] VITALS (8 sets, daily range): BP systolic 134–163; BP diastolic 60–69; O2SAT 97–99
[2024-06-04] MEDS ORDERED: GABAPENTIN 100 MG CAPSULE PO SCH (09:15)
[2024-06-04] MEDS ORDERED: GABAPENTIN 100 MG CAPSULE PO STA (13:44)
[2024-06-04] MEDS ORDERED: TUBERCULIN,PURIF.PROT.DERIV. 10 SKIN.TEST SKIN.TEST ID NR (13:45)
[2024-06-04] MEDS ORDERED: CYANOCOBALAMIN (VITAMIN B-12) 1,000 MCG TABLET PO SCH (17:52)
[2024-06-04] MEDS ORDERED: TRAMADOL HCL 50 MG TABLET PO STA (18:28)
[2024-06-05] VITALS (7 sets, daily range): BP systolic 154–169; BP diastolic 71–74; O2SAT 96–99
[2024-06-05] MEDS ORDERED: LOSARTAN POTASSIUM 50 MG TABLET PO SCH (09:00)
[2024-06-05 09:11] LABS: HEMATOCRIT 33.9 % (36.0-45.00); MEAN CELL VOLUME 89.7 fL (80.00-100.00); MEAN CORPUSCULAR HEMOGLOBIN 29.1 pg (27.00-32.0); MEAN CORPUSCULAR HGB CONC 32.4 g/dl (32.0-36.0); PLATELET COUNT 244 K/uL (150-450); RED BLOOD COUNT 3.78 M/uL (4.00-6.00); RED CELL DISTRIBUTION WIDTH 15.5 % (11.5-14.5)
[2024-06-05 09:32] LABS: ERYTHROCYTE SEDIMENTATION RATE 84 mm/hr
[2024-06-05 09:48] LABS: ALBUMIN 2.7 gm/dL (3.4-5.0); BILIRUBIN TOTAL 0.52 mg/dL (0.3-1.2); CALCIUM 8.7 mg/dL (8.5-10.1); CREATININE SERUM 3.15 mg/dL (0.55-1.02); GFR 14.54; POTASSIUM 4.65 mEq/L (3.5-5.1); TOTAL PROTEIN 6.7 gm/dL (6.4-8.2)
[2024-06-05 09:57] LABS: C-REACTIVE PROTEIN 2.47 MG/DL (0.00-0.29)
[2024-06-05] MEDS ORDERED: BUPIVACAINE HCL 30 ML VIAL IJ ONE (21:30)
[2024-06-06] VITALS (9 sets, daily range): BP systolic 144–165; BP diastolic 77–86; O2SAT 94–96
[2024-06-07] VITALS (9 sets, daily range): BP systolic 150–169; BP diastolic 63–80; O2SAT 87–100
[2024-06-08] VITALS (8 sets, daily range): BP systolic 125–165; BP diastolic 67–86; O2SAT 94–97
[2024-06-08 07:40] LABS: HEMATOCRIT 33.3 % (36.0-45.00); HEMOGLOBIN 11.1 g/dL (12.0-15.00); MEAN CELL VOLUME 87.7 fL (80.00-100.00); MEAN CORPUSCULAR HEMOGLOBIN 29.1 pg (27.00-32.0); MEAN CORPUSCULAR HGB CONC 33.2 g/dl (32.0-36.0); PLATELET COUNT 266 K/uL (150-450); RED BLOOD COUNT 3.79 M/uL (4.00-6.00); RED CELL DISTRIBUTION WIDTH 15.7 % (11.5-14.5)
[2024-06-08 08:28] LABS: ALBUMIN 2.5 gm/dL (3.4-5.0); BILIRUBIN TOTAL 0.5 mg/dL (0.3-1.2); CALCIUM 8.8 mg/dL (8.5-10.1); CREATININE SERUM 3.08 mg/dL (0.55-1.02); GFR 14.92; GLOBULINA 3.7 G/DL (2.4-3.5); POTASSIUM 4.76 mEq/L (3.5-5.1); TOTAL PROTEIN 6.2 gm/dL (6.4-8.2)
[2024-06-09 01:00] VITALS: O2SAT 96
[2024-06-09 01:34] VITALS: BP 160/65; O2SAT 97
[2024-06-09 05:27] VITALS: O2SAT 96
[2024-06-09 08:34] VITALS: BP 158/72
[2024-06-09 09:09] VITALS: O2SAT 96
[2024-06-09] MEDS ORDERED: INTEGRA PLUS C1 EACH PO (10:02)
[2024-06-09] MEDS ORDERED: ISOSORBIDE MONO30 MG PO (10:02)
[2024-06-09] MEDS ORDERED: COZAAR100 MG PO (10:03)
[2024-06-09] MEDS ORDERED: ROSUVASTATIN CA40 MG PO (10:04)
[2024-06-09] MEDS ORDERED: TOPROL XL100 M1 PO (10:04)
[2024-06-09] MEDS ORDERED: GABAPENTIN300 MG PO (10:05)
[2024-06-09] MEDS ORDERED: GABAPENTIN100 MG PO (10:05)
[2024-06-09] MEDS ORDERED: HYDRALAZINE HCL50 MG PO (10:05)
[2024-06-09] MEDS ORDERED: LEVOTHYROXINE75 MCG PO (10:06)
[2024-06-09] MEDS ORDERED: PANTOPRAZOLE SO40 MG PO (10:06)
[2024-06-09] MEDS ORDERED: INTESTINEX680 M1 PO (10:06)
[2024-06-09] MEDS ORDERED: VITAMIN B-121000 MCG PO (10:07)
[2024-06-09] MEDS ORDERED: PROTEINEX-18 LI30 ML PO (10:07)
== END 2024-06-09 14:42 | disposition home or self-care (01) | DRG 689 ==
LOC: ER 12:27 → ICU 19:42 → MEDJ 19:42 → MEDI 19:42 → ICU 05-16 19:51 → MEDI 05-23 14:45 → MEDJ 06-03 11:11
PROVIDERS: General Practice; Internal Medicine; Internal Medicine Infectious Disease; Internal Medicine Nephrology; ADMIT Internal Medicine; ATTEND Internal Medicine
PROC: BT4JZZZ Ultrasonography of Kidneys and Bladder (ICD-10-PCS; 2024-05-04)
PROC: BW28ZZZ Computerized Tomography (CT Scan) of Head (ICD-10-PCS; 2024-05-06)
PROC: 02HV33Z Insertion of Infusion Device into Superior Vena Cava, Percutaneous Approach (ICD-10-PCS; 2024-05-10)
PROC: B24BYZZ Ultrasonography of Heart with Aorta using Other Contrast (ICD-10-PCS; 2024-05-11)
PROC: 4A12X4Z Monitoring of Cardiac Electrical Activity, External Approach (ICD-10-PCS; 2024-05-11)
PROC: B513ZZA Fluoroscopy of Right Jugular Veins, Guidance (ICD-10-PCS; 2024-05-13)
PROC: BW21ZZZ Computerized Tomography (CT Scan) of Abdomen and Pelvis (ICD-10-PCS; 2024-05-17)
PROC: 5A1D70Z Performance of Urinary Filtration, Intermittent, Less than 6 Hours Per Day (ICD-10-PCS; 2024-05-18)
PROC: 05HM33Z Insertion of Infusion Device into Right Internal Jugular Vein, Percutaneous Approach (ICD-10-PCS; 2024-05-18)
PROC: 30243N1 Transfusion of Nonautologous Red Blood Cells into Central Vein, Percutaneous Approach (ICD-10-PCS; 2024-05-18)
PROC: BW24ZZZ Computerized Tomography (CT Scan) of Chest and Abdomen (ICD-10-PCS; 2024-05-19)
PROC: B54DZZZ Ultrasonography of Bilateral Lower Extremity Veins (ICD-10-PCS; 2024-05-20)
PROC: 5A1D70Z Performance of Urinary Filtration, Intermittent, Less than 6 Hours Per Day (ICD-10-PCS; 2024-05-21)
PROC: 5A1D70Z Performance of Urinary Filtration, Intermittent, Less than 6 Hours Per Day (ICD-10-PCS; 2024-05-24)
PROC: 5A1D70Z Performance of Urinary Filtration, Intermittent, Less than 6 Hours Per Day (ICD-10-PCS; 2024-05-26)
PROC: 5A1D70Z Performance of Urinary Filtration, Intermittent, Less than 6 Hours Per Day (ICD-10-PCS; 2024-05-27)
PROC: 5A1D70Z Performance of Urinary Filtration, Intermittent, Less than 6 Hours Per Day (ICD-10-PCS; 2024-05-28)
PROC: BW28ZZZ Computerized Tomography (CT Scan) of Head (ICD-10-PCS; 2024-05-29)
PROC: 0DJ08ZZ Inspection of Upper Intestinal Tract, Via Natural or Artificial Opening Endoscopic (ICD-10-PCS; 2024-05-30)
PROC: BW21ZZZ Computerized Tomography (CT Scan) of Abdomen and Pelvis (ICD-10-PCS; 2024-05-31)
PROC: 0DJD8ZZ Inspection of Lower Intestinal Tract, Via Natural or Artificial Opening Endoscopic (ICD-10-PCS; principal; 2024-06-03)
PROC: 0DJD8ZZ Inspection of Lower Intestinal Tract, Via Natural or Artificial Opening Endoscopic (ICD-10-PCS; 2024-06-03)
PROC: B54DZZZ Ultrasonography of Bilateral Lower Extremity Veins (ICD-10-PCS; 2024-06-03)
PROC: 5A1D70Z Performance of Urinary Filtration, Intermittent, Less than 6 Hours Per Day (ICD-10-PCS; 2024-06-04)
DX: N39.0 Urinary tract infection, site not specified (principal); A41.9 Sepsis, unspecified organism; R65.21 Severe sepsis with septic shock; N17.9 Acute kidney failure, unspecified; I24.9 Acute ischemic heart disease, unspecified; J44.0 Chronic obstructive pulmonary disease with (acute) lower respiratory infection; K92.2 Gastrointestinal hemorrhage, unspecified; J90 Pleural effusion, not elsewhere classified; N18.4 Chronic kidney disease, stage 4 (severe); E11.9 Type 2 diabetes mellitus without complications; Z79.4 Long term (current) use of insulin; I10 Essential (primary) hypertension; K52.9 Noninfective gastroenteritis and colitis, unspecified; J20.9 Acute bronchitis, unspecified; D64.9 Anemia, unspecified; D69.6 Thrombocytopenia, unspecified; E11.22 Type 2 diabetes mellitus with diabetic chronic kidney disease; N18.30 Chronic kidney disease, stage 3 unspecified; F43.20 Adjustment disorder, unspecified

== ENCOUNTER 2024-07-28 21:09 | Emergency (ER) | payer OTHER ==
[~2024-07-28] VITALS: Ht 162.6 cm; Wt 68.0 kg
[~2024-07-28 21:09] MED LIST changes: +COZAAR100 MG PO; +GABAPENTIN100 MG PO; +GABAPENTIN300 MG PO; +HYDRALAZINE HCL50 MG PO; +INTEGRA PLUS C1 EACH PO; +INTESTINEX680 M1 PO; +ISOSORBIDE MONO30 MG PO; +LEVOTHYROXINE75 MCG PO; +PANTOPRAZOLE SO40 MG PO; +PROTEINEX-18 LI30 ML PO; +TOPROL XL100 M1 PO; +VITAMIN B-121000 MCG PO
[2024-07-28] MEDS ORDERED: CLEVIDIPINE BUTYRATE 50 MG/100 ML VIAL IV ONE (21:45)
[2024-07-28 23:08] LABS: HEMATOCRIT 35.5 % (36.0-45.00); MEAN CELL VOLUME 87.2 fL (80.00-100.00); MEAN CORPUSCULAR HEMOGLOBIN 29.1 pg (27.00-32.0); MEAN CORPUSCULAR HGB CONC 33.4 g/dl (32.0-36.0); PLATELET COUNT 177 K/uL (150-450); RED BLOOD COUNT 4.08 M/uL (4.00-6.00); RED CELL DISTRIBUTION WIDTH 15.8 % (11.5-14.5)
[2024-07-28 23:15] LABS: HEMOGLOBIN 11.9 g/dL (12.0-15.00)
[2024-07-28 23:25] LABS: ALBUMIN 2.9 gm/dL (3.4-5.0); BILIRUBIN TOTAL 0.68 mg/dL (0.3-1.2); CALCIUM 8.6 mg/dL (8.5-10.1); CREATININE SERUM 1.36 mg/dL (0.55-1.02); GFR 38.33; GLOBULINA 4.4 G/DL (2.4-3.5); INR 1.08; PROTHROMBIN TIME 11.7 SECONDS (9.0-11.5); TOTAL PROTEIN 7.3 gm/dL (6.4-8.2)
[2024-07-28 23:40] LABS: PARTIAL THROMBOPLASTIN TIME 38.5 SECONDS (22.0-34.0)
[2024-07-29 00:23] LABS: POTASSIUM 2.79 mEq/L (3.5-5.1)
[2024-07-29] MEDS ORDERED: POTASSIUM CHLORIDE 10 MEQ CAPSULE PO STA (01:15)
[2024-07-29 03:42] LABS: PH,URINE 7.5 (5.0-8.0); URINE APPEARANCE Turbid; URINE BILIRRUBIN Negative (NEGATIVE); URINE BLOOD Negative; URINE COLOR Yellow; URINE GLUCOSE Negative (NEGATIVE); URINE KETONE Negative (NEGATIVE); URINE LEUKOCYTE Moderate; URINE NITRATE Negative; URINE PROTEIN >=1000 (NEGATIVE)
[2024-07-29 03:46] LABS: URINE EPITHELIAL CELLS 17.8 uL (0.0-38.8); URINE RBC 17.2 uL (0.0-20.8); URINE WBC 788.7 uL (0.0-23.2)
[2024-07-29 04:54] LABS: URINE BACTERIA > 9821.2 uL (0.0-1933); URINE CAST 0.73 uL (0.0-1.40)
[2024-07-29] MEDS ORDERED: cloNIDine HCL 0.3 MG TABLET PO STA (05:29)
== END 2024-07-29 11:29 | disposition home or self-care (01) ==
LOC: ER 21:09
PROVIDERS: General Practice
DX: I10 Essential (primary) hypertension (principal); E11.9 Type 2 diabetes mellitus without complications; Z79.4 Long term (current) use of insulin; Z88.1 Allergy status to other antibiotic agents
CPT/HCPCS: 36415; 71045; 93005; 96365; 99283; J3490

== ENCOUNTER 2024-07-30 22:18 | Emergency (ER) | payer OTHER ==
[~2024-07-30] VITALS: Ht 165.1 cm; Wt 63.5 kg
[2024-07-30] MEDS ORDERED: hydrALAZINE HCL 20 MG VIAL IV ONE (23:15)
[2024-07-31] MEDS ORDERED: FUROsemide 20 MG/2 ML VIAL IV STA (00:48)
[2024-07-31 01:34] LABS: HEMATOCRIT 32.5 % (36.0-45.00); HEMOGLOBIN 11.1 g/dL (12.0-15.00); MEAN CELL VOLUME 86.3 fL (80.00-100.00); MEAN CORPUSCULAR HEMOGLOBIN 29.4 pg (27.00-32.0); PLATELET COUNT 163 K/uL (150-450); RED BLOOD COUNT 3.77 M/uL (4.00-6.00); RED CELL DISTRIBUTION WIDTH 15.8 % (11.5-14.5)
[2024-07-31 02:06] LABS: INR 1.05; PARTIAL THROMBOPLASTIN TIME 28.5 SECONDS (22.0-34.0); PROTHROMBIN TIME 11.4 SECONDS (9.0-11.5)
[2024-07-31 02:12] LABS: ALBUMIN 2.8 gm/dL (3.4-5.0); BILIRUBIN TOTAL 0.5 mg/dL (0.3-1.2); CALCIUM 8.3 mg/dL (8.5-10.1); CREATININE SERUM 1.85 mg/dL (0.55-1.02); GLOBULINA 3.9 G/DL (2.4-3.5); POTASSIUM 4.02 mEq/L (3.5-5.1); TOTAL PROTEIN 6.7 gm/dL (6.4-8.2)
[2024-07-31 02:34] LABS: GFR 26.87
[2024-07-31 02:41] LABS: ABG PH 7.526 (7.35-7.45); ABG PO2 77.2 mmHg (80-100); ABG pCO2 43.4 mmHg (35-45); BICARBONATE 35.1 mmol/l (23-25); SaO2 97.1 %; Tco2 36.4 mmol/l; o2 21 %
[2024-07-31 02:42] LABS: allen test SATISFACTORY; puncture site RADIAL LEFT
[2024-07-31] MEDS ORDERED: NIFEDIPINE 10 MG CAPSULE PO STA (04:10)
[2024-07-31] MEDS ORDERED: levoFLOXacin IN DEXTROSE 5 % 500MG/100ML PIGGYBAG IV STA (06:14)
[2024-07-31] MEDS ORDERED: LEVOFLOXACIN250 MG PO (06:22)
[2024-07-31] MEDS ORDERED: NASAL MIST126 ML NASAL (06:22)
[2024-07-31 08:07] LABS: PH,URINE 7.5 (5.0-8.0); URINE APPEARANCE Cloudy; URINE BILIRRUBIN Negative (NEGATIVE); URINE BLOOD Negative; URINE COLOR Yellow; URINE GLUCOSE Negative (NEGATIVE); URINE KETONE Negative (NEGATIVE); URINE LEUKOCYTE Large; URINE NITRATE Negative
[2024-07-31 08:18] LABS: URINE BACTERIA > 9821.5 uL (0.0-1933); URINE CAST 1.91 uL (0.0-1.40); URINE EPITHELIAL CELLS 16.6 uL (0.0-38.8); URINE PROTEIN 300 (NEGATIVE); URINE RBC 2.6 uL (0.0-20.8); URINE WBC 356.2 uL (0.0-23.2)
== END 2024-07-31 08:36 ==
LOC: ER 22:18
PROVIDERS: General Practice
DX: N39.0 Urinary tract infection, site not specified (principal); B96.89 Other specified bacterial agents as the cause of diseases classified elsewhere; R25.9 Unspecified abnormal involuntary movements; I10 Essential (primary) hypertension; E11.9 Type 2 diabetes mellitus without complications; Z79.4 Long term (current) use of insulin; N19 Unspecified kidney failure; Z99.2 Dependence on renal dialysis; Z86.73 Personal history of transient ischemic attack (TIA), and cerebral infarction without residual deficits; Z88.8 Allergy status to other drugs, medicaments and biological substances; Z95.828 Presence of other vascular implants and grafts
CPT/HCPCS: 36415; 70450; 71045; 82803; 93005; 96365; 96366; 99284; J1940; J1956; J3490

== ENCOUNTER 2024-08-04 21:03 | Emergency (ER) | payer OTHER ==
[~2024-08-04] VITALS: Ht 162.6 cm; Wt 63.5 kg
[~2024-08-04 21:03] MED LIST changes: +LEVOFLOXACIN250 MG PO; +NASAL MIST126 ML NASAL
[2024-08-04] MEDS ORDERED: FAMOTIDINE/PF 20 MG in 0.9 % SODIUM CHLORIDE 8 ML IV PUSH STA (21:25)
[2024-08-04 21:57] LABS: HEMATOCRIT 36.3 % (36.0-45.00); HEMOGLOBIN 12.4 g/dL (12.0-15.00); MEAN CELL VOLUME 87.5 fL (80.00-100.00); MEAN CORPUSCULAR HEMOGLOBIN 29.8 pg (27.00-32.0); MEAN CORPUSCULAR HGB CONC 34.1 g/dl (32.0-36.0); PLATELET COUNT 171 K/uL (150-450); RED BLOOD COUNT 4.15 M/uL (4.00-6.00); RED CELL DISTRIBUTION WIDTH 15.7 % (11.5-14.5)
[2024-08-04 22:23] LABS: BILIRUBIN TOTAL 0.4 mg/dL (0.3-1.2); CALCIUM 7.8 mg/dL (8.5-10.1); CREATININE SERUM 1.8 mg/dL (0.55-1.02); GFR 27.74; GLOBULINA 4.5 G/DL (2.4-3.5); POTASSIUM 3.01 mEq/L (3.5-5.1); TOTAL PROTEIN 7.5 gm/dL (6.4-8.2)
== END 2024-08-05 04:34 | disposition home or self-care (01) ==
LOC: ER 21:03
PROVIDERS: General Practice
DX: I95.9 Hypotension, unspecified (principal); E11.9 Type 2 diabetes mellitus without complications; Z79.4 Long term (current) use of insulin; I10 Essential (primary) hypertension; Z88.8 Allergy status to other drugs, medicaments and biological substances
CPT/HCPCS: 36415; 93005; 96365; 99283; J3490

== ENCOUNTER 2024-08-22 16:40 | Emergency (ER) | payer OTHER ==
[~2024-08-22] VITALS: Ht 160 cm; Wt 63.5 kg
[2024-08-22] MEDS ORDERED: CLONIDINE HCL 0.1 MG TABLET PO ONE ×2 (17:45→17:55)
[2024-08-22 18:44] LABS: HEMATOCRIT 37.9 % (36.0-45.00); HEMOGLOBIN 12.9 g/dL (12.0-15.00); MEAN CELL VOLUME 89.8 fL (80.00-100.00); MEAN CORPUSCULAR HEMOGLOBIN 30.6 pg (27.00-32.0); MEAN CORPUSCULAR HGB CONC 34.1 g/dl (32.0-36.0); PLATELET COUNT 152 K/uL (150-450); RED BLOOD COUNT 4.22 M/uL (4.00-6.00); RED CELL DISTRIBUTION WIDTH 15.8 % (11.5-14.5)
[2024-08-22 18:56] LABS: INR 0.99; PARTIAL THROMBOPLASTIN TIME 25.4 SECONDS (22.0-34.0); PROTHROMBIN TIME 10.8 SECONDS (9.0-11.5)
[2024-08-22 19:07] LABS: ALBUMIN 3.2 gm/dL (3.4-5.0); BILIRUBIN TOTAL 0.34 mg/dL (0.3-1.2); GFR 9.25; GLOBULINA 4.4 G/DL (2.4-3.5); POTASSIUM 3.91 mEq/L (3.5-5.1); TOTAL PROTEIN 7.6 gm/dL (6.4-8.2)
[2024-08-22 19:15] LABS: CREATININE SERUM 4.66 mg/dL (0.55-1.02)
== END 2024-08-23 09:41 | disposition home or self-care (01) ==
LOC: ER 16:40
PROVIDERS: Emergency Medicine
DX: R53.81 Other malaise (principal); Z88.1 Allergy status to other antibiotic agents

== ENCOUNTER 2024-10-10 17:10 | Inpatient (IN) | payer OTHER ==
[~2024-10-10] VITALS: Ht 165.1 cm; Wt 61.2 kg
[2024-10-10] MEDS ORDERED: hydrALAZINE HCL 20 MG VIAL IV ONE (18:30)
[2024-10-10 19:21] LABS: HEMATOCRIT 31.5 % (36.0-45.00); HEMOGLOBIN 11.1 g/dL (12.0-15.00); MEAN CELL VOLUME 92.1 fL (80.00-100.00); MEAN CORPUSCULAR HEMOGLOBIN 32.5 pg (27.00-32.0); MEAN CORPUSCULAR HGB CONC 35.3 g/dl (32.0-36.0); PLATELET COUNT 174 K/uL (150-450); RED BLOOD COUNT 3.43 M/uL (4.00-6.00); RED CELL DISTRIBUTION WIDTH 13.4 % (11.5-14.5)
[2024-10-10 19:45] LABS: INR 1.02; PARTIAL THROMBOPLASTIN TIME 26.1 SECONDS (22.0-34.0); PROTHROMBIN TIME 11.1 SECONDS (9.0-11.5)
[2024-10-10 19:54] LABS: ALBUMIN 3.2 gm/dL (3.4-5.0); BILIRUBIN TOTAL 0.26 mg/dL (0.3-1.2); CALCIUM 8.8 mg/dL (8.5-10.1); CREATININE SERUM 3.42 mg/dL (0.55-1.02); GFR 13.19; GLOBULINA 3.8 G/DL (2.4-3.5); POTASSIUM 4.73 mEq/L (3.5-5.1)
[2024-10-10] MEDS ORDERED: LOPERAMIDE HCL 2 MG CAPSULE PO ONE (23:00)
[2024-10-10] MEDS ORDERED: ACETAMINOPHEN 500 MG GEL..CAP PO PRN (23:30)
[2024-10-10] MEDS ORDERED: hydrALAZINE HCL 20 MG VIAL IV PRN (23:30)
[2024-10-10] MEDS ORDERED: TEMAZEPAM 15 MG CAPSULE PO ONE (23:30)
[2024-10-11] VITALS (7 sets, daily range): BP systolic 170–229; BP diastolic 64–81; O2SAT 96–100
[2024-10-11] MEDS ORDERED: LEVOTHYROXINE SODIUM 75 MCG TABLET PO SCH (06:00)
[2024-10-11] MEDS ORDERED: PANTOPRAZOLE SODIUM 40 MG/VIAL VIAL IV SCH (09:00)
[2024-10-11] MEDS ORDERED: LACTOBACILLUS ACIDOPHILUS 1 CAP CAP PO SCH (09:00)
[2024-10-11] MEDS ORDERED: DILTIAZEM HCL 60 MG TABLET PO SCH (09:00)
[2024-10-11] MEDS ORDERED: LORazepam 0.5 MG TABLET PO SCH (09:00)
[2024-10-11] MEDS ORDERED: hydrALAZINE HCL 25 MG TABLET PO SCH (09:00)
[2024-10-11] MEDS ORDERED: ENOXAPARIN SODIUM 30 MG/0.3 ML SYRINGE SUBCUTANEO SCH (09:00)
[2024-10-11] MEDS ORDERED: hydrALAZINE HCL 50 MG TABLET PO SCH (13:00)
[2024-10-11] MEDS ORDERED: HEPARIN SODIUM,PORCINE 5,000 UNITS/ML VIAL ONE (20:11)
[2024-10-11] MEDS ORDERED: HEPARIN SODIUM,PORCINE 5,000 UNITS/ML VIAL IJ ONE (20:15)
[2024-10-11] MEDS ORDERED: CANDESARTAN CILEXETIL 32 MG TABLET PO SCH (20:17)
[2024-10-11] MEDS ORDERED: CARVEDILOL 25 MG TABLET PO SCH (20:18)
[2024-10-12 02:50] VITALS: BP 190/78; O2SAT 98
[2024-10-12] MEDS ORDERED: hydrALAZINE HCL 20 MG VIAL IV PRN (03:13)
[2024-10-12 08:17] LABS: ALBUMIN 2.8 gm/dL (3.4-5.0); ALKALINE PHOSPHATASE 74 U/L (50-136); ALT/SGPT 20 U/L (12-78); ANION GAP 10 (10.0-20.0); AST/SGOT 22 U/L (15-37); BILIRUBIN TOTAL 0.39 mg/dL (0.3-1.2); BLOOD UREA NITROGEN 23 mg/dL (7-18); BUN CREA RATIO 12 (7.0-25.0); CALCIUM 8.6 mg/dL (8.5-10.1); CARBON DIOXIDE 26 mEq/L (21-32); CHLORIDE 106 mmol/L (98-107); CREATININE SERUM 1.98 mg/dL (0.55-1.02); GFR 24.78; GLOBULINA 3.5 G/DL (2.4-3.5); GLUCOSE FASTING 81 mg/dL (65-100); OSMOLALITY SERUM 277 MOSM/KG (275-295); PHOSPHOROUS 3.1 mg/dL (2.5-4.9); SODIUM 137 mmol/L (136-145); TOTAL PROTEIN 6.3 gm/dL (6.4-8.2)
[2024-10-12 08:23] LABS: C-REACTIVE PROTEIN < 0.29 MG/DL (0.00-0.29)
[2024-10-12] MEDS ORDERED: hydrALAZINE HCL 50 MG TABLET PO SCH (09:00)
[2024-10-12] MEDS ORDERED: NIFEDIPINE 60 MG TAB.SA.OSM PO SCH ×2 (09:00)
[2024-10-12 12:03] VITALS: BP 192/70
[2024-10-12] MEDS ORDERED: DOXAZOSIN MESYLATE 4 MG TABLET PO STA (13:54)
[2024-10-12 14:03] LABS: HEMATOCRIT 32.8 % (36.0-45.00); HEMOGLOBIN 11.2 g/dL (12.0-15.00); MEAN CELL VOLUME 93.9 fL (80.00-100.00); MEAN CORPUSCULAR HEMOGLOBIN 31.9 pg (27.00-32.0); PLATELET COUNT 161 K/uL (150-450); RED CELL DISTRIBUTION WIDTH 13.6 % (11.5-14.5)
[2024-10-12 14:16] LABS: ERYTHROCYTE SEDIMENTATION RATE 18 mm/hr
[2024-10-12] MEDS ORDERED: CARVEDILOL 12.5 MG TABLET PO SCH (17:00)
[2024-10-12 19:14] VITALS: BP 133/58; O2SAT 96
[2024-10-12 19:17] LABS: URINE APPEARANCE Turbid; URINE BILIRRUBIN Negative (NEGATIVE); URINE BLOOD Negative; URINE COLOR Yellow; URINE GLUCOSE Negative (NEGATIVE); URINE KETONE Negative (NEGATIVE); URINE LEUKOCYTE Large; URINE NITRATE Negative
[2024-10-12 19:20] LABS: URINE EPITHELIAL CELLS 39.2 uL (0.0-38.8); URINE RBC 82.3 uL (0.0-20.8); URINE WBC 28.8 uL (0.0-23.2)
[2024-10-12 19:47] LABS: URINE PROTEIN 300 (NEGATIVE)
[2024-10-12 19:48] LABS: URINE BACTERIA > 9821 uL (0.0-1933); URINE CAST 0.88 uL (0.0-1.40); URINE CRYSTALS FEW /HPF
[2024-10-13 01:17] VITALS: BP 107/50; O2SAT 96
[2024-10-13] MEDS ORDERED: DOXAZOSIN MESYLATE 4 MG TABLET PO SCH (09:00)
[2024-10-13 09:27] VITALS: BP 149/55
[2024-10-13 16:24] VITALS: BP 123/55
[2024-10-13] MEDS ORDERED: MEROPENEM 500 MG/VIAL VIAL IV SCH (17:00)
[2024-10-13] MEDS ORDERED: HEPARIN SODIUM,PORCINE 5,000 UNITS/ML VIAL IV NR (18:45)
[2024-10-14 02:46] VITALS: BP 97/41
[2024-10-14] MEDS ORDERED: INSULIN LISPRO 1,000 UNIT/10 ML UNITS SUBCUTANEO PRN (05:15)
[2024-10-14] MEDS ORDERED: DEXTROSE 50 % IN WATER 0.5 G/ML DISP.SYRIN IV PRN (05:15)
[2024-10-14 08:00] VITALS: BP 154/67
[2024-10-14] MEDS ORDERED: GENTAMICIN SULFATE 40 MG/ML VIAL IV NR (09:00)
[2024-10-14 09:49] LABS: CALCIUM 8.6 mg/dL (8.5-10.1); CREATININE SERUM 2.2 mg/dL (0.55-1.02); GFR 21.94; POTASSIUM 4.49 mEq/L (3.5-5.1)
[2024-10-14 16:27] VITALS: BP 116/60
[2024-10-14] MEDS ORDERED: GENTAMICIN SULFATE 40 MG/ML VIAL IV SCH (18:30)
[2024-10-14] MEDS ORDERED: GABAPENTIN 300 MG CAPSULE PO SCH (21:00)
[2024-10-15 02:22] VITALS: BP 117/42
[2024-10-15] MEDS ORDERED: DOXAZOSIN MESYLATE 2 MG TABLET PO SCH (09:00)
[2024-10-15] MEDS ORDERED: PANTOPRAZOLE SODIUM 40 MG TABLET.DR PO SCH (09:00)
[2024-10-15 09:21] VITALS: BP 133/57
[2024-10-15] MEDS ORDERED: HEPARIN SODIUM,PORCINE 5,000 UNITS/ML VIAL IV NR (16:00)
[2024-10-15 19:27] VITALS: BP 94/52; O2SAT 100
[2024-10-16 01:39] VITALS: BP 142/71; O2SAT 99
[2024-10-16 09:22] VITALS: BP 160/64; O2SAT 99
[2024-10-16 18:43] VITALS: BP 154/75; O2SAT 97
[2024-10-17 01:24] VITALS: BP 116/66
[2024-10-17 06:55] LABS: MEAN CORPUSCULAR HEMOGLOBIN 33.2 pg (27.00-32.0); MEAN CORPUSCULAR HGB CONC 35.7 g/dl (32.0-36.0); PLATELET COUNT 142 K/uL (150-450); RED BLOOD COUNT 2.68 M/uL (4.00-6.00); RED CELL DISTRIBUTION WIDTH 13.2 % (11.5-14.5)
[2024-10-17 06:58] LABS: HEMOGLOBIN 8.9 g/dL (12.0-15.00)
[2024-10-17 07:23] LABS: ALBUMIN 2.7 gm/dL (3.4-5.0); CALCIUM 8.2 mg/dL (8.5-10.1); CREATININE SERUM 3.09 mg/dL (0.55-1.02); GFR 14.82; PHOSPHOROUS 3.1 mg/dL (2.5-4.9); POTASSIUM 4.44 mEq/L (3.5-5.1)
[2024-10-17 08:21] VITALS: BP 139/58
[2024-10-17] MEDS ORDERED: VITAMIN B COMPLEX 1 EACH PO SCH (09:00)
[2024-10-17] MEDS ORDERED: FOLIC ACID 1 MG TABLET PO SCH (09:00)
[2024-10-17] MEDS ORDERED: IRON FUM,PS/FOLIC/BCOMP,C NO.9 1 CAP CAPSULE PO SCH (09:00)
[2024-10-17] MEDS ORDERED: CYANOCOBALAMIN (VITAMIN B-12) 1,000 MCG/ML VIAL IM SCH (09:00)
[2024-10-17 10:58] LABS: PH,URINE 5.5 (5.0-8.0); URINE APPEARANCE Clear; URINE BILIRRUBIN Negative (NEGATIVE); URINE BLOOD Negative; URINE COLOR Yellow; URINE GLUCOSE Negative (NEGATIVE); URINE KETONE Negative (NEGATIVE); URINE LEUKOCYTE Large; URINE NITRATE Negative; URINE UROBILINOGEN 0.2 E.U./dl
[2024-10-17 10:59] LABS: URINE CAST 2.65 uL (0.0-1.40); URINE EPITHELIAL CELLS 25.4 uL (0.0-38.8); URINE WBC 98.9 uL (0.0-23.2)
[2024-10-17 11:40] LABS: URINE BACTERIA > 9821.5 uL (0.0-1933); URINE PROTEIN 100 (NEGATIVE); URINE RBC 0.7 uL (0.0-20.8)
[2024-10-17 18:35] VITALS: BP 150/60; O2SAT 100
[2024-10-17] MEDS ORDERED: HEPARIN SODIUM,PORCINE 5,000 UNITS/ML VIAL ONE (19:38)
[2024-10-17] MEDS ORDERED: HEPARIN SODIUM,PORCINE 5,000 UNITS/ML VIAL IV ONE (19:45)
[2024-10-18 02:04] VITALS: BP 133/73
[2024-10-18 08:14] VITALS: BP 150/68
[2024-10-18 17:31] VITALS: BP 168/61; O2SAT 100
[2024-10-19 01:54] VITALS: BP 176/89
[2024-10-19 08:19] LABS: HEMATOCRIT 24.4 % (36.0-45.00); MEAN CELL VOLUME 92.5 fL (80.00-100.00); MEAN CORPUSCULAR HGB CONC 36.3 g/dl (32.0-36.0); PLATELET COUNT 149 K/uL (150-450); RED BLOOD COUNT 2.64 M/uL (4.00-6.00); RED CELL DISTRIBUTION WIDTH 13.5 % (11.5-14.5)
[2024-10-19 08:25] LABS: HEMOGLOBIN 8.9 g/dL (12.0-15.00); MEAN CORPUSCULAR HEMOGLOBIN 33.7 pg (27.00-32.0)
[2024-10-19 09:22] VITALS: BP 169/70
[2024-10-19 17:29] LABS: ALBUMIN 3.2 gm/dL (3.4-5.0); BILIRUBIN TOTAL 0.32 mg/dL (0.3-1.2); CALCIUM 8.9 mg/dL (8.5-10.1); CREATININE SERUM 3.02 mg/dL (0.55-1.02); GFR 15.22; GLOBULINA 3.7 G/DL (2.4-3.5); POTASSIUM 4.22 mEq/L (3.5-5.1); TOTAL PROTEIN 6.9 gm/dL (6.4-8.2)
[2024-10-19 17:33] VITALS: BP 193/62; O2SAT 98
[2024-10-20 02:51] VITALS: BP 161/80
[2024-10-20 09:38] VITALS: BP 131/49
[2024-10-20] MEDS ORDERED: HEPARIN SODIUM,PORCINE 5,000 UNITS/ML VIAL IV PRN (16:00)
[2024-10-20] MEDS ORDERED: CEFTAZIDIME/AVIBACTAM 0.94GM/100ML NSS PB IV SCH (17:00)
[2024-10-20 18:11] VITALS: BP 144/69; O2SAT 99
[2024-10-21 01:09] VITALS: BP 153/66; O2SAT 98
[2024-10-21 08:53] VITALS: BP 153/71
[2024-10-21 16:43] VITALS: BP 134/58; O2SAT 99
[2024-10-22 01:27] VITALS: BP 136/70
[2024-10-22 09:53] VITALS: BP 146/65; O2SAT 99
[2024-10-22 18:10] VITALS: BP 138/55; O2SAT 100
[2024-10-22] MEDS ORDERED: DICLOFENAC SODIUM 100 GM GEL..GRAM. TOP PRN (19:30)
[2024-10-23 02:05] VITALS: BP 137/56
[2024-10-23 08:00] VITALS: BP 180/90
[2024-10-23 13:45] LABS: URINE APPEARANCE Cloudy; URINE BILIRRUBIN Negative (NEGATIVE); URINE BLOOD Negative; URINE COLOR Dark Yellow; URINE GLUCOSE Negative (NEGATIVE); URINE KETONE Trace (NEGATIVE); URINE LEUKOCYTE Moderate; URINE NITRATE Negative; URINE UROBILINOGEN 0.2 E.U./dl
[2024-10-23 13:49] LABS: URINE BACTERIA 1411.2 uL (0.0-1933); URINE CAST 3.38 uL (0.0-1.40); URINE EPITHELIAL CELLS 11.7 uL (0.0-38.8); URINE WBC 94.9 uL (0.0-23.2)
[2024-10-23 13:52] LABS: URINE PROTEIN 300 (NEGATIVE); URINE RBC 1.1 uL (0.0-20.8)
[2024-10-23 19:39] VITALS: BP 146/55; O2SAT 100
[2024-10-24 04:05] VITALS: BP 126/60
[2024-10-24 09:12] VITALS: BP 149/61
[2024-10-24 18:46] VITALS: BP 152/66; O2SAT 100
[2024-10-25 01:16] VITALS: BP 137/66; O2SAT 99
[2024-10-25 08:15] VITALS: BP 112/62
[2024-10-25 18:01] VITALS: BP 160/85; O2SAT 100
[2024-10-25] MEDS ORDERED: ZOLPIDEM TARTRATE 5 MG TABLET PO SCH (21:00)
[2024-10-25 22:28] VITALS: BP 160/71; O2SAT 98
[2024-10-26 01:27] VITALS: BP 162/60; O2SAT 99
[2024-10-26 06:29] VITALS: BP 139/55
[2024-10-26 09:14] VITALS: BP 112/64
[2024-10-26 09:14] LABS: HEMATOCRIT 27.8 % (36.0-45.00); HEMOGLOBIN 9.7 g/dL (12.0-15.00); MEAN CELL VOLUME 94.5 fL (80.00-100.00); MEAN CORPUSCULAR HEMOGLOBIN 32.9 pg (27.00-32.0); MEAN CORPUSCULAR HGB CONC 34.8 g/dl (32.0-36.0); PLATELET COUNT 148 K/uL (150-450); RED BLOOD COUNT 2.95 M/uL (4.00-6.00); RED CELL DISTRIBUTION WIDTH 13.3 % (11.5-14.5)
[2024-10-26 09:30] LABS: ALBUMIN 2.9 gm/dL (3.4-5.0); BILIRUBIN TOTAL 0.21 mg/dL (0.3-1.2); CALCIUM 8.8 mg/dL (8.5-10.1); CREATININE SERUM 3.23 mg/dL (0.55-1.02); GFR 14.09; GLOBULINA 3.2 G/DL (2.4-3.5); POTASSIUM 4.48 mEq/L (3.5-5.1); TOTAL PROTEIN 6.1 gm/dL (6.4-8.2)
[2024-10-26 17:28] VITALS: BP 160/55; O2SAT 100
[2024-10-27 00:38] VITALS: BP 165/60; O2SAT 100
[2024-10-27 04:09] VITALS: BP 148/70
[2024-10-27 08:20] VITALS: BP 155/55
[2024-10-27 16:18] VITALS: BP 131/61
[2024-10-28 01:24] VITALS: BP 190/66; O2SAT 96
[2024-10-28 08:44] VITALS: BP 192/68; O2SAT 100
[2024-10-28] MEDS ORDERED: INTEGRA PLUS C1 EACH PO (15:21)
[2024-10-28] MEDS ORDERED: DOXAZOSIN MESYLA2 MG PO (15:22)
[2024-10-28] MEDS ORDERED: CARVEDILOL12.5 MG PO (15:22)
[2024-10-28] MEDS ORDERED: ATACAND32 MG PO (15:22)
[2024-10-28] MEDS ORDERED: NIFEDIPINE ER60 MG PO (15:23)
[2024-10-28] MEDS ORDERED: GABAPENTIN300 MG PO (15:23)
[2024-10-28] MEDS ORDERED: INTESTINEX680 M1 PO (15:24)
[2024-10-28] MEDS ORDERED: PANTOPRAZOLE SO40 MG PO (15:24)
[2024-10-28] MEDS ORDERED: ZOLPIDEM TARTRAT5 MG PO (15:24)
[2024-10-28] MEDS ORDERED: LEVOTHYROXINE75 MCG PO (15:25)
[2024-10-28] MEDS ORDERED: FOLIC ACID1 MG PO (15:25)
[2024-10-28] MEDS ORDERED: CYANOCOBAL1000 MCG/1 IM (15:25)
[2024-10-28] MEDS ORDERED: B Complex PO (15:26)
[2024-10-28 17:21] VITALS: BP 170/80; O2SAT 100
[2024-10-28 22:32] VITALS: BP 106/66; O2SAT 98
== END 2024-10-28 19:32 | disposition home or self-care (01) | DRG 682 ==
LOC: ER 17:10 → MEDJ 10-11 00:23 → SEC-K 10-11 00:23 → MEDJ 10-11 04:23
PROVIDERS: General Practice; Internal Medicine; Internal Medicine Infectious Disease; Internal Medicine Nephrology; ADMIT Internal Medicine; ATTEND Internal Medicine
PROC: B24BZZZ Ultrasonography of Heart with Aorta (ICD-10-PCS; 2024-10-10)
PROC: 5A1D70Z Performance of Urinary Filtration, Intermittent, Less than 6 Hours Per Day (ICD-10-PCS; principal; 2024-10-11)
PROC: 5A1D70Z Performance of Urinary Filtration, Intermittent, Less than 6 Hours Per Day (ICD-10-PCS; 2024-10-13)
PROC: 5A1D70Z Performance of Urinary Filtration, Intermittent, Less than 6 Hours Per Day (ICD-10-PCS; 2024-10-17)
PROC: 5A1D70Z Performance of Urinary Filtration, Intermittent, Less than 6 Hours Per Day (ICD-10-PCS; 2024-10-24)
DX: I12.0 Hypertensive chronic kidney disease with stage 5 chronic kidney disease or end stage renal disease (principal); N18.6 End stage renal disease; N39.0 Urinary tract infection, site not specified; G72.81 Critical illness myopathy; I16.9 Hypertensive crisis, unspecified; E03.9 Hypothyroidism, unspecified; E11.22 Type 2 diabetes mellitus with diabetic chronic kidney disease; Z79.4 Long term (current) use of insulin; D63.1 Anemia in chronic kidney disease; Z99.2 Dependence on renal dialysis; B96.1 Klebsiella pneumoniae [K. pneumoniae] as the cause of diseases classified elsewhere; E78.5 Hyperlipidemia, unspecified; I07.1 Rheumatic tricuspid insufficiency; I34.0 Nonrheumatic mitral (valve) insufficiency; B95.2 Enterococcus as the cause of diseases classified elsewhere

== ENCOUNTER 2024-11-26 20:36 | Inpatient (IN) | payer OTHER ==
[~2024-11-26] VITALS: Ht 167.6 cm; Wt 139.7 kg
[~2024-11-26 20:36] MED LIST changes: +ATACAND32 MG PO; +B Complex PO; +CARVEDILOL12.5 MG PO; +CYANOCOBAL1000 MCG/1 IM; +DOXAZOSIN MESYLA2 MG PO; +FOLIC ACID1 MG PO; +NIFEDIPINE ER60 MG PO; +ZOLPIDEM TARTRAT5 MG PO
[2024-11-26 21:35] LABS: HEMOGLOBIN 13.3 g/dL (12.0-15.00); MEAN CELL VOLUME 93.2 fL (80.00-100.00); MEAN CORPUSCULAR HEMOGLOBIN 32.5 pg (27.00-32.0); MEAN CORPUSCULAR HGB CONC 34.9 g/dl (32.0-36.0); PLATELET COUNT 209 K/uL (150-450); RED BLOOD COUNT 4.08 M/uL (4.00-6.00); RED CELL DISTRIBUTION WIDTH 13.9 % (11.5-14.5)
[2024-11-26 22:07] LABS: INR 1.05; PROTHROMBIN TIME 11.4 SECONDS (9.0-11.5)
[2024-11-26 22:08] LABS: PARTIAL THROMBOPLASTIN TIME 58.7 SECONDS (22.0-34.0)
[2024-11-26 22:18] LABS: ALBUMIN 3.4 gm/dL (3.4-5.0); BILIRUBIN TOTAL 0.32 mg/dL (0.3-1.2); CALCIUM 8.7 mg/dL (8.5-10.1); CREATININE SERUM 1.79 mg/dL (0.55-1.02); GFR 27.84; GLOBULINA 4.3 G/DL (2.4-3.5); POTASSIUM 4.13 mEq/L (3.5-5.1); TOTAL PROTEIN 7.7 gm/dL (6.4-8.2)
[2024-11-26] MEDS ORDERED: ACETAMINOPHEN 500 MG GEL..CAP PO PRN (23:30)
[2024-11-26] MEDS ORDERED: LevETIRAcetam 500 MG/5 ML VIAL IV SCH (23:30)
[2024-11-26] MEDS ORDERED: SODIUM CHLORIDE 0.45 % 1,000 ML IV SCH (23:30)
[2024-11-26] MEDS ORDERED: hydrALAZINE HCL 20 MG VIAL IV PRN (23:45)
[2024-11-27] VITALS (7 sets, daily range): BP systolic 160–186; BP diastolic 84–85; O2SAT 90–100
[2024-11-27 01:09] LABS: ABG PH 7.494 (7.35-7.45); ABG pCO2 36.6 mmHg (35-45); BASE EXCESS 4.3 mmol/l; BICARBONATE 27.5 mmol/l (23-25); Tco2 28.7 mmol/l
[2024-11-27 01:26] LABS: ABG PO2 59.6 mmHg (80-100); allen test SATISFACTORY; mode ROOM AIR; o2 21 %; puncture site RADIAL LEFT
[2024-11-27] MEDS ORDERED: LEVOTHYROXINE SODIUM 75 MCG TABLET PO SCH (06:00)
[2024-11-27] MEDS ORDERED: METOPROLOL SUCCINATE 100 MG TAB.SR.24H PO SCH (09:00)
[2024-11-28] VITALS (7 sets, daily range): BP systolic 102–198; BP diastolic 71–86; O2SAT 97–100
[2024-11-28] MEDS ORDERED: HEPARIN SODIUM,PORCINE 5,000 UNITS/ML VIAL IV ONE (19:45)
[2024-11-29 00:42] VITALS: BP 198/78; O2SAT 98
[2024-11-29 00:44] VITALS: O2SAT 98
[2024-11-29 05:34] VITALS: O2SAT 97
[2024-11-29 09:22] VITALS: BP 175/83
[2024-11-29] MEDS ORDERED: KEPPRA500 MG PO (12:47)
[2024-11-29 17:19] VITALS: BP 160/80
== END 2024-11-29 19:50 | disposition home or self-care (01) | DRG 64 ==
LOC: ER 20:36 → MEDI 23:33
PROVIDERS: General Practice; ADMIT Internal Medicine; ATTEND Internal Medicine
PROC: B020ZZZ Computerized Tomography (CT Scan) of Brain (ICD-10-PCS; 2024-11-26)
PROC: B030YZZ Magnetic Resonance Imaging (MRI) of Brain using Other Contrast (ICD-10-PCS; 2024-11-26)
PROC: B24BYZZ Ultrasonography of Heart with Aorta using Other Contrast (ICD-10-PCS; 2024-11-26)
PROC: B345ZZZ Ultrasonography of Bilateral Common Carotid Arteries (ICD-10-PCS; 2024-11-26)
PROC: 4A12X4Z Monitoring of Cardiac Electrical Activity, External Approach (ICD-10-PCS; principal; 2024-11-27)
PROC: 5A1D70Z Performance of Urinary Filtration, Intermittent, Less than 6 Hours Per Day (ICD-10-PCS; 2024-11-28)
DX: I63.9 Cerebral infarction, unspecified (principal); N18.6 End stage renal disease; G45.9 Transient cerebral ischemic attack, unspecified; R56.9 Unspecified convulsions; I10 Essential (primary) hypertension; E03.9 Hypothyroidism, unspecified; Z99.2 Dependence on renal dialysis; E11.9 Type 2 diabetes mellitus without complications; Z79.4 Long term (current) use of insulin
CPT/HCPCS: 70544

== ENCOUNTER 2025-06-09 14:34 | Emergency (ER) | payer OTHER ==
[~2025-06-09] VITALS: Ht 165.1 cm; Wt 71.2 kg
[~2025-06-09 14:34] MED LIST changes: +KEPPRA500 MG PO
[2025-06-09 15:20] VITALS: BP 116/67; O2SAT 95
[2025-06-09 18:14] LABS: BASO % 0.7 % (0.1-1.2); EOS # 0.13 (0.04-0.54); EOS % 1.7 % (0.7-7.0); LYMPH # 1.85 (1.18-3.74); LYMPH % 24.4 % (19.3-53.1); MEAN PLATELET VOLUME 10.20 fl (9.4-12.4); MONO # 0.36 (0.24-0.82); MONO % 4.7 % (4.7-12.5); NEUT # 5.17 (1.56-6.13); NEUT % 68.2 % (34.0-71.1); RED CELL DISTRIBUTION WIDTH 12.7 % (11.6-14.4)
[2025-06-09 18:16] LABS: ERYTHROCYTE SEDIMENTATION RATE 36 mm/hr (0-30)
[2025-06-09 18:50] LABS: ALT/SGPT 22.0 U/L (12-78); AST/SGOT 17.0 U/L (15-37); BILIRUBIN TOTAL 0.34 mg/dL (0.3-1.2); BILIRUBIN,CONJUGATED 0.15 mg/dL (0.0-0.2); BUN CREA RATIO 6.0 (7.0-25.0); CREATININE SERUM 1.76 mg/dL (0.55-1.02); GFR 28.38; GLOBULINA 3.6 G/DL (2.4-3.5); GLUCOSE FASTING 139.0 mg/dL (65-100); INR 1.04; OSMOLALITY SERUM 277.0 MOSM/KG (275-295)
[2025-06-09 20:05] LABS: URINE APPEARANCE Clear; URINE BILIRRUBIN Negative (NEGATIVE); URINE BLOOD Negative; URINE COLOR Yellow; URINE GLUCOSE Negative (NEGATIVE); URINE KETONE Negative (NEGATIVE); URINE LEUKOCYTE Trace; URINE NITRATE Negative; URINE UROBILINOGEN 1.0 E.U./dl
[2025-06-09 20:09] LABS: URINE BACTERIA 15.5 uL (0.0-1933); URINE CAST 2.19 uL (0.0-1.40); URINE EPITHELIAL CELLS 7.6 uL (0.0-38.8); URINE RBC 4.3 uL (0.0-20.8); URINE WBC 3.0 uL (0.0-23.2)
[2025-06-09 20:42] LABS: URINE PROTEIN 300 (NEGATIVE)
[2025-06-10] MEDS ORDERED: 0.9 % SODIUM CHLORIDE 1,000 ML IV SCH (09:00)
== END 2025-06-09 22:01 | disposition home or self-care (01) ==
LOC: ER 14:34
PROVIDERS: General Practice
DX: R55 Syncope and collapse (principal); I10 Essential (primary) hypertension; Z88.0 Allergy status to penicillin; Z88.1 Allergy status to other antibiotic agents
CPT/HCPCS: 36415; 51702; 70450; 71045; 74176; 93005; 96365; 99284; J7030